=== PATIENT | male | born 1945 | race Caucasian/White ===

== ENCOUNTER → 2018-07-03 | Outpatient (CLI) | payer MEDICARE, BC ==
--- NOTE | 2018-07-04 10:55 | ECHOF ---
Referral Reason:G47.33 Obstructive sleep apnea MEASUREMENTS -------- HEIGHT: 180.3 cm WEIGHT: 138.3 kg BP: RVIDd: 3.1 cm (< 3.3) IVSd: 1.2 cm (0.6 - 1.1) LVIDd: 4.2 cm (3.9 - 5.3) LVPWd: 1.3 cm (0.6 - 1.1) IVSs: 1.5 cm LVIDs: 2.9 cm LVPWs: 1.5 cm LA Diam: 4.1 cm (2.7 - 3.8) Ao Diam: 3.2 cm (2.0 - 3.7) AV Cusp: 1.5 cm (1.5 - 2.6) LA Diam: 4.2 cm (2.7 - 3.8) MV E Jesus: 1.01 m/s MV DecT: 270 ms MV A Jesus: 1.11 m/s MV E/A Ratio: 0.92 RAP: 5.00 mmHg RVSP: 10.74 mmHg FINDINGS -------- Sinus rhythm. This was a technically difficult study with suboptimal views. The left ventricular size is normal. There is mild concentric left ventricular hypertrophy. Overa ll left ventricular systolic function is normal with, an EF between 55 - 60 %. The right ventricle is normal in size and function. The left atrium is mildly dilated. The right atrial size is normal. 3 ml of Lumason was utilized for enhancement of images. There is mild aortic valve sclerosis. There is no evidence of aortic regurgitation. There is no e vidence of aortic stenosis. The mitral valve leaflets are mildly thickened. Mild mitral regurgitation is present. Mild tricuspid regurgitation present. Right ventricular systolic pressure is normal at < 35 mmHg. The right ventricular systolic pressure, as measured by Doppler, is 10.74mmHg. Trace/mild (physiologic) pulmonic regurgitation. The aortic root size is normal. IVC Not well visulized. There is no pericardial effusion. CONCLUSIONS -------- 1. Sinus rhythm. 2. This was a technically difficult study with suboptimal views. 3. The left ventricular size is normal. 4. There is mild concentric left ventricular hypertrophy. 5. Overall left ventricular systolic function is normal with, an EF between 55 - 60 %. 6. The left atrium is mildly dilated. 7. 3 ml of Lumason was utilized for enhancement of images. 8. There is mild aortic valve sclerosis. 9. The mitral valve leaflets are mildly thickened. 10. Mild mitral regurgitation is present. 11. Mild tricuspid regurgitation present. 12. Right ventricular systolic pressure is normal at < 35 mmHg. 13. Trace/mild (physiologic) pulmonic regurgitation. 14. The aortic root size is normal. 15. IVC Not well visulized. 16. There is no pericardial effusion. CHECK EXAMINER: Chepe Smith RDCS
== END | disposition home or self-care (01) ==
LOC: RADECHMAIN 13:08
PROVIDERS: ATTEND Family Medicine
DX: I08.3 Combined rheumatic disorders of mitral, aortic and tricuspid valves (principal)
CPT/HCPCS: C8929; Q9950; 93306

== ENCOUNTER 2021-10-28 07:38 | Day surgery (SDC) | payer BC, MEDICARE ==
[2021-10-26 12:59] VITALS: BMI 41.1
[~2021-10-28 07:38] MED LIST: LACTATED RINGERS 1,000 ML IV SCH
[2021-10-28 08:05] VITALS: TEMP 96.9
[2021-10-28] MEDS ORDERED: LIDOCAINE 1% (10MG/ML) FOR IV START INTRADERMA ONE (08:08)
[2021-10-28 08:21] LABS: Glucose,Whole Blood 108 mg/dL (75-99)
[2021-10-28] MEDS ORDERED: PROPOFOL 10 MG/ML 20 ML VIAL IV ONE (08:39)
--- NOTE | 2021-10-28 08:42 | P.GSHP ---
History of Present Illness H&P Date: 10/28/21 Chief Complaint: Screening colonoscopy This a 76-year-old male presents today for screening colonoscopy. Patient denies a significant GI complaints. Past Medical History Past Medical History: Diabetes Mellitus, GERD/Reflux, Hyperlipidemia, Hypertension, Osteoarthritis (OA), Sleep Apnea/CPAP/BIPAP Additional Past Medical History / Comment(s): HEPATITIS A CHILD (POST TRIP TO [place]). uses CPAP, diet controlled diabetes, hx. colon polyps History of Any Multi-Drug Resistant Organisms: None Reported Past Surgical History: Joint Replacement, Tonsillectomy Additional Past Surgical History / Comment(s): BILATERAL KNEE REPLACED. FATTY TUMOR, cataracts removed, repair of torn/detached right retina Past Anesthesia/Blood Transfusion Reactions: No Reported Reaction Smoking Status: Former smoker Medications and Allergies Home Medications Medication Instructions Recorded Confirmed Type Aspirin [Adult Low Dose Aspirin EC] 81 mg PO QAM 04/08/16 10/28/21 History Celecoxib [CeleBREX] 200 mg PO QAM 04/08/16 10/28/21 History Cholecalciferol [Vitamin D3] 2,000 tab PO DAILY 04/08/16 10/28/21 History Isosorbide Mononitrate ER [Imdur] 90 mg PO QAM 04/08/16 10/28/21 History Multivit-Min/FA/Lycopen/Lutein 1 tab PO DAILY 04/08/16 10/28/21 History [Centrum Silver Tablet] [place]-3 Fatty Acids/Fish Oil [Fish 1 tab PO DAILY 04/08/16 10/28/21 History Oil 1,000 mg Softgel] Simvastatin [Zocor] 40 mg PO HS 04/08/16 10/28/21 History amLODIPine [Norvasc] 10 mg PO QAM 04/08/16 10/28/21 History Losartan Potassium [Cozaar] 100 mg PO DAILY 10/26/21 10/28/21 History hydroCHLOROthiazide [Hydrodiuril] 12.5 mg PO DAILY 10/26/21 10/28/21 History Allergies Allergy/AdvReac Type Severity Reaction Status Date / Time No Known Allergies Allergy Verified 10/28/21 08:19 Surgical - Exam Vital Signs Temp Pulse Resp BP Pulse Ox 96.9 F L 65 18 170/73 95 10/28/21 08:04 10/28/21 08:04 10/28/21 08:04 10/28/21 08:04 10/28/21 08:04 - General well developed, well nourished, no distress - Eyes PERRL - ENT normal pinna - Neck no masses - Respiratory normal expansion - Cardiovascular Rhythm: regular - Abdomen Abdomen: soft, non tender Results - Labs Abnormal Lab Results - Last 24 Hours (Table) 10/28/21 Range/Units 08:20 POC Glucose (mg/dL) 108 H (75-99) mg/dL Assessment and Plan Assessment: We'll perform screening colonoscopy.
--- NOTE | 2021-10-28 08:56 | P.OP ---
Date of Procedure: 10/28/21 Preoperative Diagnosis: Screening colonoscopy Postoperative Diagnosis: Diverticulosis Right colon polyp Procedure(s) Performed: Colonoscopy Anesthesia: MAC Surgeon: Philip Clifton Pathology: other (Right colon polyp) Condition: stable Disposition: PACU Description of Procedure: The patient's placed on the endoscopy table in the lateral position. He received IV sedation. Digital rectal exam was performed. This revealed no abnormalities. The possible colonoscope was then placed patient anus and passed throughout the entire colon. The ileocecal valve was visualized. The cecum appeared normal. In the right colon there was a sessile polyp was removed with the cold forcep. The scope was withdrawn. Remainder the transverse colon appeared normal. In the descending and sigmoid there was moderate diverticular changes. There is no evidence of diverticulitis. Scope brought back the rectum and this appeared normal. Scope withdrawn for patient.
[2021-10-28 09:00] VITALS: RESP 16
[2021-10-28 09:10] VITALS: BP 129/69; PULSE 59
== END 2021-10-28 09:37 | disposition home or self-care (01) ==
LOC: ORWHC2ENDO 07:38
PROVIDERS: ATTEND Surgery
DX: Z12.11 Encounter for screening for malignant neoplasm of colon (principal); D12.2 Benign neoplasm of ascending colon; Z86.010 Personal history of colon polyps; E11.9 Type 2 diabetes mellitus without complications; I10 Essential (primary) hypertension; E78.5 Hyperlipidemia, unspecified; K21.9 Gastro-esophageal reflux disease without esophagitis; G47.33 Obstructive sleep apnea (adult) (pediatric); M19.90 Unspecified osteoarthritis, unspecified site; Z79.82 Long term (current) use of aspirin; Z79.899 Other long term (current) drug therapy; Z87.891 Personal history of nicotine dependence; Z90.89 Acquired absence of other organs; Z96.653 Presence of artificial knee joint, bilateral; Z98.49 Cataract extraction status, unspecified eye
CPT/HCPCS: 88305; 45380; J2704

== ENCOUNTER → 2021-12-22 | Outpatient (CLI) | payer MEDICARE, BC ==
--- NOTE | 2021-12-22 19:09 | CONS ---
CONSULTATION DATE OF SERVICE: 12/22/2021 This 76-year-old gentleman has been evaluated in [facility] for obstructive sleep apnea-hypopnea syndrome. HISTORY OF PRESENT ILLNESS/SLEEP-WAKE EVALUATION: The patient has a history of obstructive sleep apnea-hypopnea syndrome for about 15 years. For all of these years the patient has been using his CPAP equipment. His last CPAP unit he has had for 6 years. The patient's sleep schedule is from 10 p.m. until 3 or 4 a.m. Usually no problems with falling asleep. No TV in bedroom. The patient usually sleeps on the back position. He maybe wakes up from sleep once while he is using his CPAP equipment. Positive history of grinding teeth and sweating. During the day, the patient sometimes feels sleepiness and may take one nap around 2 p.m. [place] Sleepiness Scale is 7, which is in normal range. The patient feels that the pressure in the machine is too high and he has some leak because of that. I checked his PAP unit. Pressure is 15 cm of water. The machine does not have information about apnea-hypopnea index. PAST MEDICAL HISTORY: Positive for hypertension, hyperlipidemia, acid reflux, diabetes mellitus, polyarthritis, COVID-19 about one months ago. PAST SURGICAL HISTORY: Bilateral knee replacement. MEDICATIONS: 1. Simvastatin 40 mg once a day. 2. Amlodipine 10 mg once a day. 3. Isosorbide 90 mg once a day. 4. Losartan/hydrochlorothiazide 100/12.5 mg once a day. 5. Celebrex 200 mg once a day. 6. Aspirin 81 mg once a day. 7. Vitamin D and omega-3 supplement. SOCIAL HISTORY: Positive for smoking in the past; quit in 1990. Alcohol consumption occasional. FAMILY HISTORY: Cancer, hypertension, heart problems. REVIEW OF SYSTEMS: Some discomfort while using CPAP equipment, which started recently related to the pressure and mask fitting. No fevers. No double vision. No recent chest pain. No shortness of breath. No abdominal pain. No bleeding episodes. No blood in the urine. No seizure episodes. PHYSICAL EXAMINATION: GENERAL: Pleasant gentleman without distress. VITAL SIGNS: BP 112/65, HR 80, RR 18, height 5 feet 11 inches, weight 290.8, body mass index 40.4, temperature 96.8, oxygen saturation at room air 96%. HEENT: PERRLA, EOMI, evaluation of oropharynx showed tongue protrudes midline. Low position of soft palate; Mallampati III. NECK: Supple, no JVD. Thyroid is not palpable. Neck is wide; 19 inches in circumference. LUNGS: Clear to percussion and to auscultation. Good air exchange. No wheezing or rhonchi. HEART: S1, S2 regular. No murmurs, gallops, or rubs. ABDOMEN: Obese. EXTREMITIES: No clubbing or cyanosis. SUPERVISOR MAPPING: Awake, alert, and oriented X3. Cranial nerves 2 to 7 intact. There is no fasciculation or atrophy. noted. No focal deficits observed. IMPRESSION: 1. Obstructive sleep apnea-hypopnea syndrome for many years. The patient continues to use his CPAP equipment. CPAP equipment does not have information about apnea- hypopnea index. Recently the patient feels discomfort with usage of his CPAP equipment, has some leak from the mask to the eye area, and feels that the pressure is too high for him. He has low position of soft palate, Mallampati III, wide neck, 19 inches in circumference. 2. Obesity; BMI 40.4. 3. Hypertension. 4. Hyperlipidemia. 5. Polyarthritis. 6. Acid reflux. 7. Diabetes mellitus. 8. Status post bilateral knee replacement. 9. Status post COVID 19 about one month ago. PLAN: 1. I reduced pressure in the machine down to 13 cm of water. 2. Patient should continue to use CPAP equipment every night for the whole night. 3. CPAP titration for re-evaluation of effective CPAP pressure at the present time and to properly fit the patient with his mask. 4. Precautions related to driving. No driving if feeling sleepiness. 5. Losing weight. 6. Follow-up visit after titration. Thank you very much for referring this patient for consultation. Sincerely, Scot Mcgraw MD, PhD, FAASM Diplomat of [place] [employer] Sleep Medicine Board of [place] [employer] [facility] [place] [email or web address] / MAXI: [id number] /
== END ==
LOC: SLEEP 14:20
PROVIDERS: ATTEND Internal Medicine
DX: G47.33 Obstructive sleep apnea (adult) (pediatric) (principal); E66.9 Obesity, unspecified; I10 Essential (primary) hypertension; E78.5 Hyperlipidemia, unspecified; M13.80 Other specified arthritis, unspecified site; K21.9 Gastro-esophageal reflux disease without esophagitis; E11.9 Type 2 diabetes mellitus without complications; Z96.653 Presence of artificial knee joint, bilateral; Z86.16 Personal history of COVID-19; Z68.41 Body mass index [BMI] 40.0-44.9, adult; Z79.899 Other long term (current) drug therapy; Z79.82 Long term (current) use of aspirin; Z87.891 Personal history of nicotine dependence
CPT/HCPCS: 99211

== ENCOUNTER 2022-10-18 14:20 | Emergency (ER) | payer MEDICARE ==
[2022-10-18 14:27] VITALS: TEMP 97.4
--- NOTE | 2022-10-18 14:54 | ED ---
Dizziness HPI - General Chief Complaint: Dizziness Stated Complaint: Blood pressure and oxygen low Time Seen by Provider: 10/18/22 14:32 Source: patient, RN notes reviewed Mode of arrival: ambulatory Limitations: no limitations - History of Present Illness Initial Comments: This is a 77-year-old male who presents to the emergency department for dizziness. Patient states that he was shopping with his , when he suddenly started to feel dizzy and lightheaded. He went to go sit in the car, and still felt unwell. When he got home, he checked his blood pressure and states that it was 85/60. He has had problems with low blood pressure in the past, however he has never been symptomatic. He had minor associated shortness of breath. Denies any chest pain. He was discharged from here on 10/10 following a 3 day admission for a facial cellulitis. States that this has improved significantly other than some residual redness. He is still taking the Augmentin. Denies any fevers, chills, sore throat, cough, dyspnea, chest pain, palpita tions, abdominal pain, nausea, vomiting, diarrhea, back pain, or headaches. MD Complaint: dizziness, lightheadedness - Related Data Home Medications Medication Instructions Recorded Confirmed Aspirin [Adult Low Dose Aspirin EC] 81 mg PO DAILY 04/08/16 10/18/22 Celecoxib [CeleBREX] 200 mg PO DAILY 04/08/16 10/18/22 Isosorbide Mononitrate ER [Imdur] 90 mg PO DAILY 04/08/16 10/18/22 Multivit-Min/FA/Lycopen/Lutein 1 tab PO DAILY 04/08/16 10/18/22 [Centrum Silver Tablet] [place]-3 Fatty Acids/Fish Oil [Fish 1 cap PO DAILY 04/08/16 10/18/22 Oil 1,000 mg Softgel] Simvastatin [Zocor] 40 mg PO HS 04/08/16 10/18/22 amLODIPine [Norvasc] 10 mg PO DAILY 04/08/16 10/18/22 Losartan Potassium [Cozaar] 100 mg PO DAILY 10/26/21 10/18/22 hydroCHLOROthiazide [Hydrodiuril] 12.5 mg PO DAILY 10/26/21 10/18/22 Cholecalciferol [Vitamin D3 (25 50 mcg PO DAILY 10/07/22 10/18/22 Mcg = 1000 Iu)] Diclofenac Sodium Gel [Voltaren 1 applic TOPICAL QID PRN 10/07/22 10/18/22 Gel] Vit C/E/Zn/Coppr/Lutein/Zeaxan 1 cap PO BID 10/07/22 10/18/22 [Preservision Areds 2 Softgel] diphenhydrAMINE HCL [Benadryl] 50 mg PO Q4H PRN 10/07/22 10/18/22 Omeprazole 40 mg PO DAILY 10/18/22 10/18/22 Previous Rx's Medication Instructions Recorded Amoxic-Pot Clav 875-125Mg 1 tab PO Q12HR 10 Days #20 tab 10/10/22 [Augmentin 875-125] Azithromycin [Zithromax] 250 mg PO DIRECTED #6 tab 10/18/22 Allergies Allergy/AdvReac Type Severity Reaction Status Date / Time [email or web address] 10/18/22 15:27 [From Neosporin site ([id number])] [email or web address] 10/18/22 15:27 [From Neosporin site ([id number])] [email or web address] [email or web address] 10/18/22 15:27 [From Neosporin site ([id number])] Review of Systems ROS Statement: Those systems with pertinent positive or pertinent negative responses have been documented in the HPI. ROS Other: All systems not noted in ROS Statement are negative. Past Medical History Past Medical History: Diabetes Mellitus, GERD/Reflux, Hyperlipidemia, Hypertension, Osteoarthritis (OA), Sleep Apnea/CPAP/BIPAP Additional Past Medical History / Comment(s): HEPATITIS A CHILD (POST TRIP TO [place]). uses CPAP, diet controlled diabetes, hx. colon polyps History of Any Multi-Drug Resistant Organisms: None Reported Past Surgical History: Joint Replacement, Tonsillectomy Additional Past Surgical History / Comment(s): BILATERAL KNEE REPLACED. FATTY TUMOR, cataracts removed, repair of torn/detached right retina Past Anesthesia/Blood Transfusion Reactions: No Reported Reaction Past Psychological History: No Psychological Hx Reported Smoking Status: Former smoker Past Alcohol Use History: None Reported Past Drug Use History: None Reported General Exam Limitations: no limitations General appearance: alert, in no apparent distress Head exam: Present: atraumatic, normocephalic, other (Minor erythema to the bilateral cheeks and forehead. No swelling or tenderness.) Respiratory exam: Present: normal lung sounds bilaterally. Absent: respiratory distress, wheezes, rales, rhonchi, stridor Cardiovascular Exam: Present: regular rate, normal rhythm, normal heart sounds. Absent: systolic murmur, diastolic murmur, rubs, gallop, clicks Neurological exam: Present: alert, oriented X3, CN II-XII intact Psychiatric exam: Present: normal affect, normal mood Skin exam: Present: warm, dry, intact Course Vital Signs 10/18/22 10/18/22 10/18/22 14:22 15:51 17:21 Temperature 97.4 F L Pulse Rate 74 68 62 Respiratory 16 18 18 Rate Blood Pressure 97/60 116/56 122/58 O2 Sat by Pulse 97 95 97 Oximetry 10/18/22 17:30 Temperature 97.4 F L Pulse Rate 61 Respiratory 18 Rate Blood Pressure 146/64 O2 Sat by Pulse 98 Oximetry Medical Decision Making - Medical Decision Making This is a 77-year-old male who presents to the emergency department for hypotension and dizziness. Was pt. sent in by a medical professional or institution? @ -No Did you speak to anyone other than the patient for history? @ -No Did you review nursing and triage notes? @ -Yes, and I agree, it is accurate with regards to the patient's symptoms. Were old charts reviewed? @ -No Differential Diagnosis? @ -Differential Dizziness: Benign paroxysmal positional Vertigo, Menieres disease, otitis media, acoustic neuroma, vertebrobasilar insufficiency, cerebellar stroke, encephalitis, hypovolemic, arrhythmia, coronary artery syndrome, anemia, this is not meant to be an all-inclusive list EKG interpreted by me (3pts min.)? @ -Sinus rhythm. Ventricular rate 72 beats per minute, AK interval 181 ms, QRS duration 88 ms, QTC 456 ms. X-rays interpreted by me (1pt min.)? @ -Chest x-ray obtained. My interpretation reveals right middle lobe opacities. What testing was considered but not performed? (CT, X-rays, U/S, labs)? Why? @ -None What meds were considered but not given? Why? @ -None Did you discuss the management of the patient with other professionals? @ -No Did you reconcile home meds? @ -No Was smoking cessation discussed for >3mins.? @ -No Was critical care preformed (if so, how long)? @ -No Were there social determinants of health that impacted care today? How? (Homelessness, low income, unemployed, alcoholism, drug addiction, transportation, low edu. Level, literacy, decrease access to med. care, [facility], rehab)? @ -No Was there de-escalation of care discussed even if they declined? (Discuss DNR or withdrawal of care, Hospice)? @ -No What co-morbidities impacted this encounter? (DM, HTN, Smoking, COPD, CAD, Cancer, CVA, Hep., AIDS, mental health diagnosis, sleep apnea, morbid obesity)? @ -DM, HTN, HLD, morbid obesity Was patient admitted / discharged? @ -Discharged. Lab work reveals leukocytosis increased from the value prior to discharge on 10/10. He also has a mild EH. BP 97/60 on arrival. He was given a liter bolus of IV fluids for the blood pressure and EH. Blood pressure did improve dramatically to 122/58 followed by 146/64. Hypotension possibly second lynn to dehydration. Chest x-ray concerning for developing pneumonia versus atelectasis. Findings reviewed with the patient, and we discussed that we can consider admission for the pneumonia and symptomatic hypotension versus discharge home with close follow-up. Patient states that overall he feels markedly improved and requests discharge home. Prescription for Z-Jaime provided with the first dose administered in the emergency department. He is advised to take this while finishing his course of Augmentin. He is also advised to remain well-hydrated and check his blood pressure frequently over the next couple of days and to follow-up with his primary care provider in 1-2 days. Undiagnosed new problem with uncertain prognosis? @ -None Drug Therapy requiring intensive monitoring for toxicity (Heparin, Nitro, Insulin, Cardizem)? @ -None Were any procedures done? @ -None Diagnosis/symptom? @ -Dehydration, pneumonia Acute, or Chronic, or Acute on Chronic? @ -Acute Uncomplicated (without systemic symptoms) or Complicated (systemic symptoms)? @ -Uncomplicated Side effects of treatment? @ -None Exacerbation, Progression, or Severe Exacerbation] @ -Not applicable Poses a threat to life or bodily function? @ -No Return precautions reviewed in depth, the patient is instructed to return to the emergency department with any new, worsening, or concerning symptoms. Patient verbalized understanding. This case was discussed in detail with the attending ED physician, Dr. Hardin. Presentation, findings, and treatment plan discussed in detail as well. - Lab Data Result diagrams: 10/18/22 14:58 10/18/22 14:58 Lab Results 10/18/22 10/18/22 10/18/22 Range/Units 14:50 14:58 14:58 WBC 13.6 H (3.8-10.6) k/uL RBC 5.04 (4.30-5.90) m/uL Hgb 14.9 (13.0-17.5) gm/dL Hct 45.2 (39.0-53.0) % MCV 89.7 (80.0-100.0) fL MCH 29.6 (25.0-35.0) pg MCHC 33.0 (31.0-37.0) g/dL RDW 13.7 (11.5-15.5) % Plt Count 272 (150-450) k/uL MPV 8.0 Neutrophils % 78 % Lymphocytes % 13 % Monocytes % 5 % Eosinophils % 2 % Basophils % 1 % Neutrophils # 10.7 H (1.3-7.7) k/uL Lymphocytes # 1.7 (1.0-4.8) k/uL Monocytes # 0.7 (0-1.0) k/uL Eosinophils # 0.3 (0-0.7) k/uL Basophils # 0.1 (0-0.2) k/uL PT 10.8 (9.0-12.0) sec INR 1.0 (<1.2) Sodium (137-145) mmol/L Potassium (3.5-5.1) mmol/L Chloride (98-107) mmol/L Carbon Dioxide (22-30) mmol/L Anion Gap mmol/L BUN (9-20) mg/dL Creatinine (0.66-1.25) mg/dL Est GFR (CKD-EPI)AfAm (>60 ml/min/1.73 sqM) Est GFR (CKD-EPI)NonAf (>60 ml/min/1.73 sqM) Glucose (74-99) mg/dL Plasma Lactic Acid Balaji (0.7-2.0) mmol/L Calcium (8.4-10.2) mg/dL Total Bilirubin (0.2-1.3) mg/dL AST (17-59) U/L ALT (4-49) U/L Alkaline Phosphatase (38-126) U/L Troponin I (0.000-0.034) ng/mL C-Reactive Protein (<1.0) mg/dL Total Protein (6.3-8.2) g/dL Albumin (3.5-5.0) g/dL Urine Color Yellow Urine Appearance Cloudy (Clear) Urine pH 5.5 (5.0-8.0) Ur Specific [place] 1.022 (1.001-1.035) Urine Protein 1+ H (Negative) Urine Glucose (UA) Negative (Negative) Urine Ketones Negative (Negative) Urine Blood Negative (Negative) Urine Nitrite Negative (Negative) Urine Bilirubin Negative (Negative) Urine Urobilinogen 2.0 (<2.0) mg/dL Ur Leukocyte Esterase Negative (Negative) Urine RBC 2 (0-5) /hpf Urine WBC 4 (0-5) /hpf Ur Squamous Epith Cells 2 (0-4) /hpf Amorphous Sediment Occasional H (None) /hpf Hyaline Casts 326 H (0-2) /lpf Urine Mucus Many H (None) /hpf Urine Opiates Screen Not Detected (NotDetected) Ur Oxycodone Screen Not Detected (NotDetected) Urine Methadone Screen Not Detected (NotDetected) Ur Propoxyphene Screen Not Detected (NotDetected) Ur Barbiturates Screen Not Detected (NotDetected) U Tricyclic Antidepress Not Detected (NotDetected) Ur Phencyclidine Scrn Not Detected (NotDetected) Ur Amphetamines Screen Not Detected (NotDetected) U Methamphetamines Scrn Not Detected (NotDetected) U Benzodiazepines Scrn Not Detected (NotDetected) Urine Cocaine Screen Not Detected (NotDetected) U Marijuana (THC) Screen Detected H (NotDetected) 10/18/22 10/18/22 10/18/22 Range/Units 14:58 14:58 14:58 WBC (3.8-10.6) k/uL RBC (4.30-5.90) m/uL Hgb (13.0-17.5) gm/dL Hct (39.0-53.0) % MCV (80.0-100.0) fL MCH (25.0-35.0) pg MCHC (31.0-37.0) g/dL RDW (11.5-15.5) % Plt Count (150-450) k/uL MPV Neutrophils % % Lymphocytes % % Monocytes % % Eosinophils % % Basophils % % Neutrophils # (1.3-7.7) k/uL Lymphocytes # (1.0-4.8) k/uL Monocytes # (0-1.0) k/uL Eosinophils # (0-0.7) k/uL Basophils # (0-0.2) k/uL PT (9.0-12.0) sec INR (<1.2) Sodium 140 (137-145) mmol/L Potassium 4.5 (3.5-5.1) mmol/L Chloride 107 (98-107) mmol/L Carbon Dioxide 23 (22-30) mmol/L Anion Gap 10 mmol/L BUN 31 H (9-20) mg/dL Creatinine 1.60 H (0.66-1.25) mg/dL Est GFR (CKD-EPI)AfAm 48 (>60 ml/min/1.73 sqM) Est GFR (CKD-EPI)NonAf 41 (>60 ml/min/1.73 sqM) Glucose 119 H (74-99) mg/dL Plasma Lactic Acid Balaji 1.7 (0.7-2.0) mmol/L Calcium 9.4 (8.4-10.2) mg/dL Total Bilirubin 0.6 (0.2-1.3) mg/dL AST 25 (17-59) U/L ALT 41 (4-49) U/L Alkaline Phosphatase 87 (38-126) U/L Troponin I 0.014 (0.000-0.034) ng/mL C-Reactive Protein 1.8 H (<1.0) mg/dL Total Protein 7.2 (6.3-8.2) g/dL Albumin 4.3 (3.5-5.0) g/dL Urine Color Urine Appearance (Clear) Urine pH (5.0-8.0) Ur Specific [place] (1.001-1.035) Urine Protein (Negative) Urine Glucose (UA) (Negative) Urine Ketones (Negative) Urine Blood (Negative) Urine Nitrite (Negative) Urine Bilirubin (Negative) Urine Urobilinogen (<2.0) mg/dL Ur Leukocyte Esterase (Negative) Urine RBC (0-5) /hpf Urine WBC (0-5) /hpf Ur Squamous Epith Cells (0-4) /hpf Amorphous Sediment (None) /hpf Hyaline Casts (0-2) /lpf Urine Mucus (None) /hpf Urine Opiates Screen (NotDetected) Ur Oxycodone Screen (NotDetected) Urine Methadone Screen (NotDetected) Ur Propoxyphene Screen (NotDetected) Ur Barbiturates Screen (NotDetected) U Tricyclic Antidepress (NotDetected) Ur Phencyclidine Scrn (NotDetected) Ur Amphetamines Screen (NotDetected) U Methamphetamines Scrn (NotDetected) U Benzodiazepines Scrn (NotDetected) Urine Cocaine Screen (NotDetected) U Marijuana (THC) Screen (NotDetected) - Radiology Data Radiology results: report reviewed, image reviewed Disposition Clinical Impression: Dehydration, Pneumonia Disposition: HOME SELF-CARE Instructions (If sedation given, give patient instructions): Dehydration (ED), Pneumonia (ED) Additional Instructions: Return to the emergency department with any new, worsening, or concerning symptoms. Take the new antibiotic as prescribed for 5 days. Continue taking the Augmentin with it. Make sure that you remain very well-hydrated. Follow up with your primary care provider in 1-2 days. Prescriptions: Azithromycin [Zithromax] 250 mg PO DIRECTED #6 tab Is patient prescribed a controlled substance at d/c from ED?: No Referrals: Dawna Vu MD [Primary Care Provider] - 1-2 days
[2022-10-18 15:04] LABS: Basophils # (A) 0.1 k/uL (0-0.2); Basophils % (A) 1 %; Eosinophils # (A) 0.3 k/uL (0-0.7); Eosinophils % (A) 2 %; HCT 45.2 % (39.0-53.0); HGB 14.9 gm/dL (13.0-17.5); Lymphocytes # (A) 1.7 k/uL (1.0-4.8); Lymphocytes % (A) 13 %; MCH 29.6 pg (25.0-35.0); MCV 89.7 fL (80.0-100.0); Monocytes # (A) 0.7 k/uL (0-1.0); Monocytes % (A) 5 %; Neutrophils # (A) 10.7 k/uL (1.3-7.7); Neutrophils % (A) 78 %; Platelet Count 272 k/uL (150-450); RBC 5.04 m/uL (4.30-5.90); RDW 13.7 % (11.5-15.5); WBC 13.6 k/uL (3.8-10.6)
[2022-10-18 15:25] LABS: Albumin 4.3 g/dL (3.5-5.0); C Reactive Protein 1.8 mg/dL (<1.0); Calcium 9.4 mg/dL (8.4-10.2); Potassium 4.5 mmol/L (3.5-5.1); Total Bilirubin 0.6 mg/dL (0.2-1.3); Total Protein 7.2 g/dL (6.3-8.2)
[2022-10-18 15:29] LABS: Prothrombin Time 10.8 sec (9.0-12.0)
[2022-10-18 15:37] LABS: Amorphous Sediment,Urine Occasional /hpf; Appearance,Urine Cloudy (Clear); Bilirubin,Urine Negative (Negative); Blood,Urine Negative (Negative); Color,Urine Yellow; Glucose,Urine (UA) Negative (Negative); Hyaline Casts,Urine 326 /lpf (0-2); Ketones,Urine Negative (Negative); Leukocyte Esterase,Urine Negative (Negative); Mucus,Urine Many /hpf; Nitrite,Urine Negative (Negative); PH, Urine 5.5 (5.0-8.0); Protein,Urine 1+ (Negative); RBC,Urine 2 /hpf (0-5); Specific Gravity,Urine 1.022 (1.001-1.035); Squamous Epithelial Cell,Urine 2 /hpf (0-4); WBC,Urine 4 /hpf (0-5)
[2022-10-18 15:46] LABS: Amphetamine Screen,Urine Not Detected (NotDetected); Barbiturate Screen,Urine Not Detected (NotDetected); Benzodiazepines Screen,Urine Not Detected (NotDetected); Cocaine Screen,Urine Not Detected (NotDetected); Methadone Screen, Urine Not Detected (NotDetected); Opiate Screen,Urine Not Detected (NotDetected); Oxycodone Screen, Urine Not Detected (NotDetected); Phencyclidine Screen,Urine Not Detected (NotDetected); Tricyclic Antidepressant,Urine Not Detected (NotDetected); Urn Cannabinoid Scrn Detected (NotDetected)
--- NOTE | 2022-10-18 15:49 | XR ---
EXAMINATION TYPE: XR chest 2V DATE OF EXAM: 10/18/2022 3:30 PM COMPARISON: Chest radiographs from 03/02/2010 TECHNIQUE: XR chest 2V Frontal and lateral views of the chest. CLINICAL INDICATION:Male, 77 years old with history of ODALIS; FINDINGS: Lungs/Pleura: No pleural effusion or pneumothorax. Patchy right middle lobe airspace opacities. Pulmonary vascularity: Unremarkable. Heart/mediastinum: Cardiomediastinal silhouette is unremarkable. Atherosclerotic calcifications are seen in the aorta. Musculoskeletal: Multiple level degenerative disc disease changes seen throughout the spine. No acute osseous adenopathy. IMPRESSION: Patchy right middle lobe airspace opacities which may represent atelectasis versus infiltrate.
[2022-10-18 15:52] VITALS: RESP 18
[2022-10-18] MEDS ORDERED: SODIUM CHLORIDE 0.9% 1,000 ML IV STA (15:54)
[2022-10-18] MEDS ORDERED: AZITHROMYCIN 500 MG TAB PO STA (16:29)
[2022-10-18 17:32] VITALS: BP 146/64; PULSE 61
== END 2022-10-18 17:30 | disposition home or self-care (01) ==
LOC: EC 14:20
DX: E86.0 Dehydration (principal); J18.9 Pneumonia, unspecified organism; I10 Essential (primary) hypertension; E11.36 Type 2 diabetes mellitus with diabetic cataract; K21.9 Gastro-esophageal reflux disease without esophagitis; E78.5 Hyperlipidemia, unspecified; Z88.1 Allergy status to other antibiotic agents; Z90.89 Acquired absence of other organs; Z96.653 Presence of artificial knee joint, bilateral; Z79.82 Long term (current) use of aspirin; Z87.891 Personal history of nicotine dependence
CPT/HCPCS: 36415; 71046; 80053; 80306; 81001; 83605; 84484; 85025; 85610; 86140; 93005; 96360; 99284

== ENCOUNTER → 2022-12-07 | Outpatient (CLI) | payer MEDICARE ==
--- NOTE | 2022-12-07 12:27 | CT ---
EXAMINATION TYPE: CT chest w con DATE OF EXAM: 12/07/2022 COMPARISON: 03/02/2010 HISTORY: SOB CT DLP: 940 mGycm, Automated exposure control for dose reduction was used. CONTRAST: Performed injected with 100 mL of Isovue 300. TECHNIQUE: Axial images were obtained at 5 mm thick sections. Reconstructed images are reviewed on [employer] computer in the coronal plane. FINDINGS: Portion of the thyroid visualized is normal. Some streak opacity in the posterior right lung base may be some atelectasis. Couple of punctate calc ifications appears to lie above the right diaphragm. Tiny density is along the major fissure on the l eft, series 4 image 44. Small anterior right upper lung field density is present, series 4 image 45. No enlarged mediastinal or hilar adenopathy is evident. There is a 0.9 cm pretracheal lymph node pr esent. A 0.8 cm right peribronchial lymph node is present. The ascending aorta diameter at the level of the main pulmonary artery is 2.9 cm. The main pulmonary artery diameter at the bifurcation is 2.4 cm. Some coronary artery calcification is noted. Limited CT sections are obtained through the upper abdomen. Abdomen is essentially unremarkable. IMPRESSIONS: 1. No suspicious acute abnormality. CT chest follow-up can be performed in one year.
== END | disposition home or self-care (01) ==
LOC: RADCTMAIN 10:12
PROVIDERS: ATTEND Family Medicine
DX: R06.00 Dyspnea, unspecified (principal); Z87.01 Personal history of pneumonia (recurrent)
CPT/HCPCS: 82565; 84520; 71260; 36415; Q9967

== ENCOUNTER 2023-08-31 10:09 | Day surgery (SDC) | payer BC, MEDICARE ==
[~2023-08-31 10:09] MED LIST changes: +ALPRAZolam 0.25 MG TAB PO PRN; +ALPRAZolam 0.5 MG TAB PO PRN; +ASPIRIN 325 MG TAB PO ONE; +ATORVASTATIN 80 MG TAB PO ONE; +HEPARIN SODIUM,PORCINE (1 ML) 2,500 UNIT in SODIUM CHLORIDE 0.9% 250 ML IRRIGATION PRN; +HEPARIN SODIUM,PORCINE 10,000 UNIT in SODIUM CHLORIDE 0.9% 1,000 ML IRRIGATION PRN; -LACTATED RINGERS 1,000 ML IV SCH; +NITROGLYCERIN SL TABS 0.4 MG TAB SUBLINGUAL PRN; +SODIUM CHLORIDE 0.9% 1,000 ML in EMPTY BAG 1 BAG IV SCH
[2023-08-31] MEDS ORDERED: SODIUM CHLORIDE 0.9% 1,000 ML IV ONE ×2 (10:47→16:35)
[2023-08-31 11:02] LABS: Glucose,Whole Blood 146 mg/dL (70-110)
[2023-08-31 11:17] VITALS: RESP 16; TEMP 98.6
[2023-08-31] MEDS ORDERED: HEPARIN SODIUM 1,000 UN/ML (10ML VL) ONE (12:14)
[2023-08-31] MEDS ORDERED: VERAPAMIL 2.5 MG/ML 2 ML AMP ONE (12:14)
[2023-08-31] MEDS ORDERED: LIDOCAINE 1% INJ 10MG/ML (20 ML MDV) ONE (12:14)
[2023-08-31] MEDS ORDERED: MIDAZOLAM 2 MG/2 ML VIAL IVP ONE (12:31)
[2023-08-31] MEDS ORDERED: LIDOCAINE 1% INJ 10MG/ML (20 ML MDV) SQ ONE (12:32)
[2023-08-31] MEDS ORDERED: VERAPAMIL SYRINGE (5 MG/10 ML) INTRAARTER ONE (12:36)
[2023-08-31] MEDS ORDERED: HEPARIN SODIUM 1,000 UN/ML (10ML VL) IVP ONE (12:37)
[2023-08-31] MEDS ORDERED: RX INFO: IV CONTRAST WAS GIVEN 1 EACH MISC MISCELLANE PRN (12:46)
[2023-08-31] MEDS ORDERED: SODIUM CHLORIDE 0.9% 1,000 ML IV SCH (13:00)
--- NOTE | 2023-08-31 13:10 | CC ---
CARDIAC CATHETERIZATION REPORT PERFORMING PHYSICIAN: Merlin Rangel MD. PROCEDURE PERFORMED: 1. Selective right and left coronary angiogram. 2. Ultrasound-guided access of the right radial artery. INDICATIONS: This is a symptomatic 78-year-old gentleman who underwent myocardial perfusion imaging stress test and that came in to be abnormal showing inferolateral ischemia. APPROACH: Right radial artery. COMPLICATIONS: None. LEVEL OF SEDATION: Moderate, with sedation length of 13 minutes. PROCEDURE DESCRIPTION: After obtaining informed consent, the patient was brought to the cardiac test lab technician. The right radial artery was cannulated using micropuncture technique under ultrasound guidance, the micropuncture wire passed easily then I placed a 6-Vincentian sheath. I gave the patient 2 mg of verapamil intra-arterially and 5000 units of heparin intravenous. Selective right and left coronary angiogram performed using JR4 and JL3.5 catheters. The procedure was completed with no complication. SELECTIVE CORONARY ANGIOGRAM: The RCA is a large-caliber vessel and a dominant vessel. The mid RCA has mild-to- moderate disease, appeared to be in the range of 30% to 40%. The left main is angiographically normal it bifurcates into LCX and LAD. The LCX is a large-caliber vessel it is a nondominant vessel. The LCX in the mid portion by the bifurcation of the obtuse marginal branch has a lesion appeared to be in the range of 60%. The LAD is a large-caliber vessel. Tortuous LAD with mild to moderate disease with no high-grade stenosis identified. CONCLUSION: 1. 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 The artery by the bifurcation of large obtuse marginal branch. POSTPROCEDURE MANAGEMENT: Consider medical treatment at this point. If the patient remains symptomatic, consider FFR of the left circumflex and possibly the RCA. MMODL / IJN: [id number] /
[2023-08-31 15:16] VITALS: BP 141/59; PULSE 66
== END 2023-08-31 16:37 | disposition home or self-care (01) ==
LOC: CATHCVL 10:09
PROVIDERS: ATTEND Internal Medicine Interventional Cardiology
DX: I25.10 Atherosclerotic heart disease of native coronary artery without angina pectoris (principal); I10 Essential (primary) hypertension; E78.5 Hyperlipidemia, unspecified; E11.9 Type 2 diabetes mellitus without complications; F17.210 Nicotine dependence, cigarettes, uncomplicated; I73.9 Peripheral vascular disease, unspecified; G47.33 Obstructive sleep apnea (adult) (pediatric); Z79.899 Other long term (current) drug therapy; Z79.82 Long term (current) use of aspirin
CPT/HCPCS: 93458; 76937; C1769; C1894; J2250; J2001; J1644

== ENCOUNTER 2024-02-27 01:06 | Emergency (ER) | payer MEDICARE ==
[2024-02-27] MEDS: DILTIAZEM ORAL 60 MG TAB PO STA (01:30)
[2024-02-27] MEDS: ASPIRIN 81 MG PO STA (01:30)
[2024-02-27] MEDS ORDERED: DILTIAZEM 125 MG in SODIUM CHLORIDE 0.9% 100 ML IV SCH (01:30)
[2024-02-27 01:33] LABS: Basophils # (A) 0.1 k/uL (0-0.2); Basophils % (A) 1 %; Eosinophils # (A) 0.5 k/uL (0-0.7); Eosinophils % (A) 6 %; HCT 42.8 % (39.0-53.0); Lymphocytes # (A) 1.5 k/uL (1.0-4.8); Lymphocytes % (A) 16 %; MCHC 32.7 g/dL (31.0-37.0); MCV 88.5 fL (80.0-100.0); Mean Platelet Volume 7.7; Monocytes # (A) 0.5 k/uL (0-1.0); Monocytes % (A) 5 %; Neutrophils # (A) 6.5 k/uL (1.3-7.7); Neutrophils % (A) 71 %; Platelet Count 262 k/uL (150-450); RBC 4.83 m/uL (4.30-5.90); RDW 14.2 % (11.5-15.5); WBC 9.1 k/uL (3.8-10.6)
[2024-02-27 01:46] LABS: Partial Thromboplastin Time 29.4 sec (22.0-30.0)
[2024-02-27 01:52] LABS: ALT 17 U/L (4-49); AST 27 U/L (17-59); African American GFR (CKD) 73 (>60 ml/min/1.73 sqM); Albumin 3.9 g/dL (3.5-5.0); Alkaline Phosphatase 101 U/L (38-126); Anion Gap 9 mmol/L; Blood Urea Nitrogen 28 mg/dL (9-20); Calcium 8.6 mg/dL (8.4-10.2); Carbon Dioxide 21 mmol/L (22-30); Chloride 106 mmol/L (98-107); Glucose 164 mg/dL (74-99); Magnesium 1.5 mg/dL (1.6-2.3); Non-African American GFR(CKD) 63 (>60 ml/min/1.73 sqM); Potassium 3.8 mmol/L (3.5-5.1); Sodium 136 mmol/L (137-145); Total Bilirubin 0.7 mg/dL (0.2-1.3); Total Protein 6.4 g/dL (6.3-8.2)
--- NOTE | 2024-02-27 02:39 | XR ---
EXAM: XR Chest, 2 Views CLINICAL HISTORY: ITS.REASON XR Reason: dysrhythmia TECHNIQUE: Frontal and lateral views of the chest. COMPARISON: No relevant prior studies available. FINDINGS: Lungs: Unremarkable. No consolidation. Pleural space: Trace LEFT pleural effusion. No pneumothorax. Heart: Cardiomegaly. Mediastinum: Unremarkable. Normal mediastinal contour. Bones/joints: Unremarkable. No acute fracture. IMPRESSION: Trace LEFT pleural effusion.
[2024-02-27] MEDS: MAGNESIUM SULFATE-D5W PMX 1 GM in DEXTROSE/WATER 1 100ML.BAG IVPB ONE (03:11)
[2024-02-27 03:14] VITALS: TEMP 98.8
--- NOTE | 2024-02-27 03:48 | ED ---
Chest Pain HPI - General Chief Complaint: Chest Pain Stated Complaint: Chest pain Time Seen by Provider: 02/27/24 01:19 Source: patient Mode of arrival: EMS Limitations: no limitations - History of Present Illness Initial Comments: This patient is a 78-year-old man brought by ambulance from his long-term care facility to have evaluation for chest pain. Patient had reported pain to the nurses there tonight. On EMS arrival they found the patient and what appeared to be atrial fibrillation with a rate between 140s and 170s. MD Complaint: chest pain -: hour(s) Onset: during rest Pain Location: substernal - Related Data Home Medications Medication Instructions Recorded Confirmed Aspirin [Adult Low Dose Aspirin EC] 81 mg PO DAILY 04/08/16 08/31/23 Celecoxib [CeleBREX] 200 mg PO DAILY 04/08/16 08/25/23 Isosorbide Mononitrate ER [Imdur] 90 mg PO DAILY 04/08/16 08/25/23 Multivit-Min/FA/Lycopen/Lutein 1 tab PO DAILY 04/08/16 08/31/23 [Centrum Silver Tablet] [place]-3 Fatty Acids/Fish Oil [Fish 1 cap PO DAILY 04/08/16 08/31/23 Oil 1,000 mg Softgel] Simvastatin [Zocor] 40 mg PO HS 04/08/16 08/25/23 Losartan Potassium [Cozaar] 100 mg PO DAILY 10/26/21 08/25/23 hydroCHLOROthiazide [Hydrodiuril] 6.25 mg PO DAILY 10/26/21 08/25/23 Cholecalciferol [Vitamin D3 (25 125 mcg PO DAILY 10/07/22 08/31/23 Mcg = 1000 Iu)] Diclofenac Sodium Gel [Voltaren 1% 1 applic TOPICAL QID PRN 10/07/22 08/31/23 Gel] Vit C/E/Zn/Coppr/Lutein/Zeaxan 1 cap PO BID 10/07/22 08/31/23 [Preservision Areds 2 Softgel] Omeprazole 40 mg PO DAILY 10/18/22 08/25/23 Previous Rx's Medication Instructions Recorded Magnesium Oxide [Mag-Ox] 400 mg PO DAILY #15 tablet 02/27/24 Magnesium Oxide [Mag-Ox] 400 mg PO DAILY #15 tablet 02/27/24 Allergies Allergy/AdvReac Type Severity Reaction Status Date / Time bacitracin Allergy [email or web address]@Contact Verified 08/31/23 10:54 [From Neosporin site ([id number])] neomycin [email or web address] [email or web address]@Contact Verified 08/31/23 10:54 [From Neosporin site ([id number])] polymyxin B Allergy Swelling@Contact Verified 08/31/23 10:54 [From Neosporin site ([id number])] Review of Systems ROS Statement: Those systems with pertinent positive or pertinent negative responses have been documented in the HPI. ROS Other: All systems not noted in ROS Statement are negative. Constitutional: Denies: fever, chills Respiratory: Denies: cough, dyspnea Cardiovascular: Reports: chest pain, palpitations Gastrointestinal: Denies: abdominal pain, nausea, vomiting Genitourinary: Denies: hematuria Musculoskeletal: Denies: back pain Skin: Denies: rash Neurological: Denies: headache, weakness Past Medical History Past Medical History: Diabetes Mellitus, GERD/Reflux, Hyperlipidemia, Hypertension, Osteoarthritis (OA), Sleep Apnea/CPAP/BIPAP Additional Past Medical History / Comment(s): HEPATITIS A CHILD (POST TRIP TO [place]). uses CPAP, diet controlled diabetes, hx. colon polyps History of Any Multi-Drug Resistant Organisms: None Reported Past Surgical History: Joint Replacement, Tonsillectomy Additional Past Surgical History / Comment(s): BILATERAL KNEE REPLACED. FATTY TUMOR, cataracts removed, repair of torn/detached right retina Past Anesthesia/Blood Transfusion Reactions: No Reported Reaction Past Psychological History: No Psychological Hx Reported Smoking Status: Never smoker Past Alcohol Use History: Occasional Past Drug Use History: None Reported General Exam Limitations: no limitations General appearance: alert, in no apparent distress Head exam: Present: atraumatic, normocephalic Eye exam: Present: normal appearance. Absent: scleral icterus, conjunctival injection Neck exam: Present: normal inspection Respiratory exam: Present: normal lung sounds bilaterally. Absent: respiratory distress, wheezes, rales, rhonchi, stridor, accessory muscle use Cardiovascular Exam: Present: regular rate, normal rhythm, normal heart sounds. Absent: systolic murmur, diastolic murmur, rubs, gallop GI/Abdominal exam: Present: soft. Absent: distended, tenderness, guarding, rebound, rigid, mass Extremities exam: Present: normal inspection, normal capillary refill. Absent: pedal edema, calf tenderness Back exam: Present: normal inspection. Absent: CVA tenderness (R), CVA tenderness (L) Neurological exam: Present: alert Skin exam: Present: warm, dry, intact, normal color. Absent: rash Course Vital Signs 02/27/24 02/27/24 02/27/24 01:11 01:19 01:30 Temperature 98.6 F Pulse Rate 101 H 112 H 71 Respiratory 20 20 18 Rate Blood Pressure 131/107 139/93 142/72 O2 Sat by Pulse 93 L 95 95 Oximetry 02/27/24 02/27/24 02/27/24 02:00 03:12 03:53 Temperature 98.8 F Pulse Rate 71 64 61 Respiratory 18 17 18 Rate Blood Pressure 146/68 118/60 131/56 O2 Sat by Pulse 96 95 95 Oximetry Chest Pain MDM - MDM This patient is 78-year-old man [facility] chest pain and rapid heart rate. On arrival ECG was performed which showed atrial fibrillation with a rapid ventricular rate at 127. By the time that I had gone to see the patient, he had spontaneously reverted to sinus rhythm with a normal rate. The patient's symptoms all resolved. Workup is unremarkable here and as the patient is feeling well stable for transfer back to long-term care facility Was pt. sent in by a medical professional or institution (JAMEEL Ramon, SENIOR LINUX UNIX ENGINEER, urgent care, hospital, or penitentiary...) When possible be specific @ -[Sent from long-term care facility to have evaluation Did you speak to anyone other than the patient for history (EMS, parent, family, police, friend...)? What history was obtained from this source @ -[No] Did you review nursing and triage notes (agree or disagree)? Why? @ -[I reviewed and agree with nursing and triage notes] Were old charts reviewed (outside hosp., previous admission, EMS record, old EKG, old radiological studies, urgent care reports/EKG's, penitentiary records)? Report findings @ -[yes old charts were reviewed] Differential Diagnosis (chest pain, altered mental status, abdominal pain women, abdominal pain men, vaginal bleeding, weakness, fever, dyspnea, syncope, headache, dizziness, GI bleed, back pain, seizure, CVA, palpatations, mental health, musculoskeletal)? @ -[Differential Chest Pain: Stable Angina, Unstable Angina, STEMI, NSTEMI Aortic Dissection, Pneumothorax, Musculoskeletal, Esophageal Spasm GERD, Cholecystitis, Pancreatitis, Zoster, this is not meant to be an all-inclusive list. EKG interpreted by me (3pts min.). @ -[I interpreted as above X-rays interpreted by me (1pt min.). @ -[I interpreted as above CT interpreted by me (1pt min.). @ -[None done] U/S interpreted by me (1pt. min.). @ -[None done] What testing was considered but not performed or refused? (CT, X-rays, U/S, labs)? Why? @ -[None] What meds were considered but not given or refused? Why? @ -[None] Did you discuss the management of the patient with other professionals (professionals i.e. , PA, SENIOR LINUX UNIX ENGINEER, lab, RT, psych nurse, elementary school social worker, postal superintendent, teacher, public health officer, case advocate)? Give summary @ -[No] Was smoking cessation discussed for >3mins.? @ -[No] Was critical care preformed (if so, how long)? @ -[No] Were there social determinants of health that impacted care today? How? (Homelessness, low income, unemployed, alcoholism, drug addiction, transportation, low edu. Level, literacy, decrease access to med. care, halfway, rehab)? @ -[No] Was there de-escalation of care discussed even if they declined (Discuss DNR or withdrawal of care, Hospice)? DNR status @ -[No] What co-morbidities impacted this encounter? (DM, HTN, Smoking, COPD, CAD, Cancer, CVA, ARF, Chemo, Hep., AIDS, mental health diagnosis, sleep apnea, morbid obesity)? @ -[Previous history of atrial fibrillation Was patient admitted / discharged? Hospital course, mention meds given and route, prescriptions, significant lab abnormalities, going to OR and other pertinent info. @ -[See above Undiagnosed new problem with uncertain prognosis? @ -[No] Drug Therapy requiring intensive monitoring for toxicity (Heparin, Nitro, Insulin, Cardizem)? @ -[No] Were any procedures done? @ -[No] Diagnosis/symptom? @ -[Paroxysmal atrial fibrillation Chest pain Hypomagnesemia Acute, or Chronic, or Acute on Chronic? @ -Acute Uncomplicated (without systemic symptoms) or Complicated (systemic symptoms)? @ -[Uncomplicated Side effects of treatment? @ -[No] Exacerbation, Progression, or Severe Exacerbation? @ -[No] Poses a threat to life or bodily function? How? (Chest pain, [place], [place], pneumonia, PE, COPD, DKA, ARF, appy, cholecystitis, CVA, Diverticulitis, Homicidal, Suicidal, threat to staff... and all critical care pts) @ -[No] Disposition Clinical Impression: Paroxysmal atrial fibrillation, Hypomagnesemia Disposition: HOME SELF-CARE Condition: Good Instructions (If sedation given, give patient instructions): A-fib (Atrial Fibrillation) (ED) Prescriptions: Magnesium Oxide [Mag-Ox] 400 mg PO DAILY #15 tablet Magnesium Oxide [Mag-Ox] 400 mg PO DAILY #15 tablet Is patient prescribed a controlled substance at d/c from ED?: No Referrals: Dawna Vu MD [Primary Care Provider] - 1-2 days Jin Hilliard MD [Medical Doctor] - 1-2 days
[2024-02-27 03:54] VITALS: BP 131/56; PULSE 61; RESP 18
== END 2024-02-27 04:13 | disposition home or self-care (01) ==
LOC: EC 01:06
DX: E83.42 Hypomagnesemia (principal); I48.0 Paroxysmal atrial fibrillation; Z79.1 Long term (current) use of non-steroidal anti-inflammatories (NSAID)
CPT/HCPCS: 36415; 93005; 80053; 83735; 84484; 85025; 85610; 85730; 71046; 99285; 96365; J3475

== ENCOUNTER 2024-03-07 10:29 | Emergency (ER) | payer MEDICARE ==
[2024-03-07] MEDS ORDERED: MORPHINE SULFATE 4 MG/ML SYRINGE ONE (11:08)
[2024-03-07] MEDS ORDERED: LIDOCAINE 1% INJ 10MG/ML (20 ML MDV) ONE (11:08)
[2024-03-07] MEDS ORDERED: DIPH,PERTUS(ACELL)TETVAC-LF 0.5 ML VIAL IM ONE (11:08)
[2024-03-07] MEDS ORDERED: SODIUM CHLORIDE 0.9% 1,000 ML BAG ONE (11:10)
[2024-03-07] MEDS ORDERED: cefTRIAXone IN SWFI 1,000 MG/10 ML SYRINGE IVP ONE (14:16)
--- NOTE | 2024-04-11 10:30 | XR ---
Patient: Seferino Perez J Ordering Physician: Unknown, Unknown ID: [id number] Phone, Pager: Phone: N/A Pager: N/A : 1945 Age/Gender: 78Y, M Primary Location: N/A Procedure: XR hand complete LT Augustine dy Date: 03/07/2024 11:53:03 AM EXAMINATION TYPE: XR hand complete LT DATE OF EXAM: 03/24/2024 11:13 AM CLINICAL INDICATION: Laceration COMPARISON: None TECHNIQUE: XR hand complete LT Frontal, lateral and oblique views were obtained. FINDINGS/IMPRESSION: Left thumb laceration with suspected fracture of the base of the volar aspect of the distal phalanx. No radiopaque foreign bodies. Multilevel degeneration changes of the joints of the hand.
== END 2024-03-07 14:45 | disposition home or self-care (01) ==
LOC: EC 10:29
CPT/HCPCS: 12004; 90471; 90715; 96374; 96376; 99283

== ENCOUNTER 2025-01-06 09:19 | Observation (INO) | payer MEDICARE ==
[2025-01-06 09:32] VITALS: TEMP 98.7
--- NOTE | 2025-01-06 10:43 | US ---
EXAMINATION TYPE: US upper ext pseudo RT DATE OF EXAM: 01/06/2025 COMPARISON: NONE CLINICAL INDICATION: Male, 79 years old with history of pain,swelling; Heart cath 12/31 TECHNIQUE: several images taken at area of concern with color and spectral doppler FINDINGS: There is a 1.7x1.4x2.0cm pseudoaneurysm at the distal right radial artery. Neck measures 0 .13cm. Bidirectional flow noted. IMPRESSION: 1. Pseudoaneurysm right radial artery [facility], , 01/06/2025 10:40 AM
[2025-01-06] MEDS ORDERED: NALOXONE 0.4 MG/ML 1 ML VIAL IV PRN (12:36)
[2025-01-06] MEDS ORDERED: ACETAMINOPHEN TAB 325 MG TAB PO PRN (12:36)
--- NOTE | 2025-01-06 12:36 | ED ---
General Adult HPI - General Chief complaint: Recheck/Abnormal Lab/Rx Stated complaint: weakness,R arm pain Time Seen by Provider: 01/06/25 09:33 Source: patient, RN notes reviewed Mode of arrival: wheelchair Limitations: no limitations - History of Present Illness Initial comments: 79-year-old male presents emergency department complaint of right wrist pain, swelling. Patient states he had a heart cath [address] Rangel. He has had increasing swelling, discomfort. Patient states he did have some swelling initially right after the procedure. Patient denies any chest pain, fevers or chills or any other associated symptoms at this time. - Related Data Home Medications Medication Instructions Recorded Confirmed Aspirin [Adult Low Dose Aspirin EC] 81 mg PO DAILY 04/08/16 12/31/24 Celecoxib [CeleBREX] 200 mg PO DAILY 04/08/16 12/31/24 Isosorbide Mononitrate ER [Imdur] 90 mg PO DAILY 04/08/16 12/31/24 Multivit-Min/FA/Lycopen/Lutein 1 tab PO DAILY 04/08/16 12/31/24 [Centrum Silver Tablet] [place]-3 Fatty Acids/Fish Oil [Fish 1,200 mg PO DAILY 04/08/16 12/31/24 Oil 1,000 mg Softgel] Simvastatin [Zocor] 40 mg PO HS 04/08/16 12/31/24 hydroCHLOROthiazide [Hydrodiuril] 6.25 mg PO DAILY 10/26/21 12/31/24 Cholecalciferol [Vitamin D3 (25 125 mcg PO DAILY 10/07/22 12/31/24 Mcg = 1000 Iu)] Vit C/E/Zn/Coppr/Lutein/Zeaxan 1 cap PO BID 10/07/22 12/31/24 [Preservision Areds 2 Softgel] Omeprazole 40 mg PO DAILY 10/18/22 12/31/24 Fluticasone/Umeclidin/Vilanter 1 puff INHALATION DAILY 12/26/24 12/26/24 [Trelegy Ellipta 200-62.5-25] Semaglutide [Ozempic] 0.5 mg SQ FR 12/26/24 12/26/24 Previous Rx's Medication Instructions Recorded Magnesium Oxide [Mag-Ox] 400 mg PO DAILY #15 tablet 02/27/24 Allergies Allergy/AdvReac Type Severity Reaction Status Date / Time bacitracin Allergy Swelling@Contact Verified 01/06/25 09:31 [From Neosporin site ([id number])] neomycin Allergy Swelling@Contact Verified 01/06/25 09:31 [From Neosporin site ([id number])] polymyxin B Allergy Swelling@Contact Verified 01/06/25 09:31 [From Neosporin site ([id number])] Review of Systems ROS Statement: Those systems with pertinent positive or pertinent negative responses have been documented in the HPI. ROS Other: All systems not noted in ROS Statement are negative. Past Medical History Past Medical History: Diabetes Mellitus, GERD/Reflux, Hyperlipidemia, Hypertension, Osteoarthritis (OA), Sleep Apnea/CPAP/BIPAP Additional Past Medical History / Comment(s): HEPATITIS A CHILD (POST TRIP TO [place]). uses CPAP, diet controlled diabetes, hx. colon polyps History of Any Multi-Drug Resistant Organisms: None Reported Past Surgical History: Joint Replacement, Tonsillectomy Additional Past Surgical History / Comment(s): BILATERAL KNEE REPLACED. FATTY TUMOR, cataracts removed, repair of torn/detached right retina, heart cath Past Anesthesia/Blood Transfusion Reactions: No Reported Reaction Past Psychological History: No Psychological Hx Reported Smoking Status: Never smoker General Exam Limitations: no limitations General appearance: alert, in no apparent distress Head exam: Present: atraumatic, normocephalic, normal inspection Neck exam: Present: normal inspection. Absent: tenderness, meningismus, lymphadenopathy Respiratory exam: Present: normal lung sounds bilaterally. Absent: respiratory distress, wheezes, rales, rhonchi, stridor Cardiovascular Exam: Present: regular rate, normal rhythm, normal heart sounds. Absent: systolic murmur, diastolic murmur, rubs, gallop, clicks Extremities exam: Present: other (Right wrist there is a large fluid collection, tenderness palpation, radial pulses palpable, cap refill less than 2 seconds there is ecchymosis extending up the forearm without erythema) Course Vital Signs 01/06/25 09:26 Temperature 98.7 F Pulse Rate 90 Respiratory 17 Rate Blood Pressure 128/83 O2 Sat by Pulse 95 Oximetry Medical Decision Making - Medical Decision Making Was pt. sent in by a medical professional or institution (, PA, RECYCLER, urgent care, hospital, or senior living...) When possible be specific @ -No Did you speak to anyone other than the patient for history (EMS, parent, family, police, friend...)? What history was obtained from this source @ -No Did you review nursing and triage notes (agree or disagree)? Why? @ -I reviewed and agree with nursing and triage notes Were old charts reviewed (outside hosp., previous admission, EMS record, old EKG, old radiological studies, urgent care reports/EKG's, senior living records)? Report findings @ -No old charts were reviewed Differential Diagnosis (chest pain, altered mental status, abdominal pain women, abdominal pain men, vaginal bleeding, weakness, fever, dyspnea, syncope, headache, dizziness, GI bleed, back pain, seizure, CVA, palpatations, mental health, musculoskeletal)? @ -Hematoma, pseudoaneurysm EKG interpreted by me (3pts min.). @ -None X-rays interpreted by me (1pt min.). @ -None done CT interpreted by me (1pt min.). @ -None done U/S interpreted by me (1pt. min.). @ -Ultrasound right wrist showing evidence of 2 cm pseudoaneurysm What testing was considered but not performed or refused? (CT, X-rays, U/S, labs)? Why? @ -None What meds were considered but not given or refused? Why? @ -None Did you discuss the management of the patient with other professionals (professionals i.e. , PA, RECYCLER, lab, RT, psych nurse, director social, field service engineer, teacher, chief environmental commitment officer, pillowcase cutter)? Give summary @ -Discussed the case with Dr. Delaney on-call biomedical service engineer recommends discussed with interventional radiology or possible thrombin injection. I discussed case with Dr. Earl on-call interventional radiologist who stated this is not typically a procedure he would perform. Patient case ameena with Dr. Dunbar for admission for thrombin injection Was smoking cessation discussed for >3mins.? @ -No Was critical care preformed (if so, how long)? @ -No Were there social determinants of health that impacted care today? How? (Homelessness, low income, unemployed, alcoholism, drug addiction, transportation, low edu. Level, literacy, decrease access to med. care, prison, rehab)? @ -No Was there de-escalation of care discussed even if they declined (Discuss DNR or withdrawal of care, Hospice)? DNR status @ -No What co-morbidities impacted this encounter? (DM, HTN, Smoking, COPD, CAD, Cancer, CVA, ARF, Chemo, Hep., AIDS, mental health diagnosis, sleep apnea, morb id obesity)? @ -None Was patient admitted / discharged? Hospital course, mention meds given and route, prescriptions, significant lab abnormalities, going to OR and other pertinent info. @ -[Admit patient found to have pseudoaneurysm on ultrasound. Patient admitted for cardiology evaluation. Undiagnosed new problem with uncertain prognosis? @ -No Drug Therapy requiring intensive monitoring for toxicity (Heparin, Nitro, Insulin, Cardizem)? @ -No Were any procedures done? @ -No Diagnosis/symptom? @ -Pseudoaneurysm right Acute, or Chronic, or Acute on Chronic? @ -Acute Uncomplicated (without systemic symptoms) or Complicated (systemic symptoms)? @ -Comp gated Side effects of treatment? @ -No Exacerbation, Progression, or Severe Exacerbation? @ -No Poses a threat to life or bodily function? How? (Chest pain, [place], [place], pneumonia, PE, COPD, DKA, ARF, appy, cholecystitis, CVA, Diverticulitis, Homicidal, Suicidal, threat to staff... and all critical care pts) @ -No Disposition Clinical Impression: Pseudoaneurysm Disposition: ADMITTED IP TO THIS HOSP Condition: Fair Referrals: Dawna Vu MD [Primary Care Provider] - 1-2 days Time of Disposition: 12:36
[2025-01-06 13:14] LABS: Basophils # (A) 0.11 10*3/uL (0.00-0.10); Basophils % (A) 0.8 %; Eosinophils # (A) 0.29 10*3/uL (0.04-0.35); HCT 47.2 % (39.6-50.0); HGB 15.6 g/dL (13.0-17.0); Lymphocytes # (A) 1.34 10*3/uL (0.90-5.00); Lymphocytes % (A) 9.4 %; MCH 29.1 pg (27.0-32.0); MCHC 33.1 g/dL (32.0-37.0); MCV 87.9 fL (80.0-97.0); Mean Platelet Volume 10.1 fL (9.5-12.2); Monocytes % (A) 4.9 %; Neutrophils % (A) 82.6 %; Platelet Count 320 10*3/uL (140-440); RBC 5.37 10*6/uL (4.40-5.60); RDW 15.2 % (11.5-14.5); WBC 14.29 10*3/uL (4.50-10.00)
[2025-01-06 13:24] LABS: INR 1.1 (<1.2); Partial Thromboplastin Time 29.4 sec (22.0-30.0); Prothrombin Time 12.2 sec (10.0-12.5)
[2025-01-06 13:37] LABS: ALT 24 U/L (4-49); AST 31 U/L (17-59); African American GFR (CKD) 53 (>60 ml/min/1.73 sqM); Albumin 4.8 g/dL (3.5-5.0); Alkaline Phosphatase 74 U/L (38-126); Anion Gap 14 mmol/L; Blood Urea Nitrogen 22 mg/dL (9-20); Calcium 10.2 mg/dL (8.4-10.2); Carbon Dioxide 26 mmol/L (22-30); Chloride 100 mmol/L (98-107); Glucose 95 mg/dL (74-99); Non-African American GFR(CKD) 46 (>60 ml/min/1.73 sqM); Potassium 4.1 mmol/L (3.5-5.1); Sodium 140 mmol/L (137-145); Total Bilirubin 0.8 mg/dL (0.2-1.3); Total Protein 7.5 g/dL (6.3-8.2)
--- NOTE | 2025-01-06 14:24 | P.GSCN ---
History of Present Illness Consult date: 01/06/25 Reason for Consult: Right radial pseudoaneurysm Requesting physician: Tete Vivas History of present illness: This a pleasant 79-year-old male with multiple comorbidities who underwent a cardiac catheterization last week on 12/31/[address] Rangel by ultrasound-guided access of the right radial artery. Apparently after the procedure patient had swelling and pain at the site. Pressure dressing was applied and he was discharged home. He continued to have increased swelling and pain so he came in for further evaluation to the emergency department. He was seen by cardiology initially who apparently wanted interventional radiology consulted for thrombin injection however IR are no longer doing thrombin injections. Vascular surgery was consulted for further evaluation. Patient denies any numbness or tingling in his fingers, he has full range of motion, no signs of ischemia. Does have pain at the wrist above the access site with noted pseudoaneurysm without hematoma with surrounding ecchymosis. Patient is not on any anticoagulation, he does take aspirin 81 mg daily. Review of Systems A 14 point review systems was completed all pertinent positives and negatives as stated in the HPI. Past Medical History Past Medical History: Diabetes Mellitus, GERD/Reflux, Hyperlipidemia, Hypertension, Osteoarthritis (OA), Sleep Apnea/CPAP/BIPAP Additional Past Medical History / Comment(s): HEPATITIS A CHILD (POST TRIP TO [place]). uses CPAP, diet controlled diabetes, hx. colon polyps History of Any Multi-Drug Resistant Organisms: None Reported Past Surgical History: Joint Replacement, Tonsillectomy Additional Past Surgical History / Comment(s): BILATERAL KNEE REPLACED. FATTY TUMOR, cataracts removed, repair of torn/detached right retina, heart cath Past Anesthesia/Blood Transfusion Reactions: No Reported Reaction Past Psychological History: No Psychological Hx Reported Smoking Status: Never smoker Medications and Allergies Home Medications Medication Instructions Recorded Confirmed Type Aspirin [Adult Low Dose Aspirin EC] 81 mg PO DAILY 04/08/16 12/31/24 History Celecoxib [CeleBREX] 200 mg PO DAILY 04/08/16 12/31/24 History Isosorbide Mononitrate ER [Imdur] 90 mg PO DAILY 04/08/16 12/31/24 History Multivit-Min/FA/Lycopen/Lutein 1 tab PO DAILY 04/08/16 12/31/24 History [Centrum Silver Tablet] [place]-3 Fatty Acids/Fish Oil [Fish 1,200 mg PO DAILY 04/08/16 12/31/24 History Oil 1,000 mg Softgel] Simvastatin [Zocor] 40 mg PO HS 04/08/16 12/31/24 History hydroCHLOROthiazide [Hydrodiuril] 6.25 mg PO DAILY 10/26/21 12/31/24 History Cholecalciferol [Vitamin D3 (25 125 mcg PO DAILY 10/07/22 12/31/24 History Mcg = 1000 Iu)] Vit C/E/Zn/Coppr/Lutein/Zeaxan 1 cap PO BID 10/07/22 12/31/24 History [Preservision Areds 2 Softgel] Omeprazole 40 mg PO DAILY 10/18/22 12/31/24 History Magnesium Oxide [Mag-Ox] 400 mg PO DAILY #15 tablet 02/27/24 12/31/24 Rx Fluticasone/Umeclidin/Vilanter 1 puff INHALATION DAILY 12/26/24 12/26/24 History [Trelegy Ellipta 200-62.5-25] Semaglutide [Ozempic] 0.5 mg SQ FR 12/26/24 12/26/24 History Allergies Allergy/AdvReac Type Severity Reaction Status Date / Time bacitracin Allergy Swelling@Contact Verified 01/06/25 09:31 [From Neosporin site ([id number])] neomycin Allergy Swelling@Contact Verified 01/06/25 09:31 [From Neosporin site ([id number])] polymyxin B Allergy Swelling@Contact Verified 01/06/25 09:31 [From Neosporin site ([id number])] Surgical - Exam Vital Signs Temp Pulse Resp BP Pulse Ox 98.7 F 90 17 128/83 95 01/06/25 09:26 01/06/25 09:26 01/06/25 09:26 01/06/25 09:26 01/06/25 09:26 General appearance: The patient is alert, oriented, appears in no acute distress. HET: Head is normocephalic and atraumatic. Pupils are equal and reactive. Neck: Supple. Heart: Regular. Lungs: Equal expansion, normal respiratory effort. Abdomen: Soft, nontender, nondistended. Extremities: Right upper extremity pink and warm. Right wrist access site without any bleeding, proximal to site is noted hematoma and ecchymosis with tenderness to palpation. Patient sensorimotor is intact, good capillary refill, hand is warm to the touch. Palpable radial pulse. Neurological: Alert and oriented. Results - Labs 01/06/25 13:11 01/06/25 13:11 Abnormal Lab Results - Last 24 Hours (Table) 01/06/25 01/06/25 Range/Units 13:11 13:11 WBC 14.29 H (4.50-10.00) 10*3/uL Immature Gran # 0.05 H (0.00-0.04) 10*3/uL Neutrophils # 11.80 H (1.80-7.70) 10*3/uL Basophils # 0.11 H (0.00-0.10) 10*3/uL BUN 22 H (9-20) mg/dL Creatinine 1.45 H (0.66-1.25) mg/dL Diabetes panel 01/06/25 Range/Units 13:11 Sodium 140 (137-145) mmol/L Potassium 4.1 (3.5-5.1) mmol/L Chloride 100 (98-107) mmol/L Carbon Dioxide 26 (22-30) mmol/L BUN 22 H (9-20) mg/dL Creatinine 1.45 H (0.66-1.25) mg/dL Glucose 95 (74-99) mg/dL Calcium 10.2 (8.4-10.2) mg/dL AST 31 (17-59) U/L ALT 24 (4-49) U/L Alkaline Phosphatase 74 (38-126) U/L Total Protein 7.5 (6.3-8.2) g/dL Albumin 4.8 (3.5-5.0) g/dL Calcium panel 01/06/25 Range/Units 13:11 Calcium 10.2 (8.4-10.2) mg/dL Albumin 4.8 (3.5-5.0) g/dL Pituitary panel 01/06/25 Range/Units 13:11 Sodium 140 (137-145) mmol/L Potassium 4.1 (3.5-5.1) mmol/L Chloride 100 (98-107) mmol/L Carbon Dioxide 26 (22-30) mmol/L BUN 22 H (9-20) mg/dL Creatinine 1.45 H (0.66-1.25) mg/dL Glucose 95 (74-99) mg/dL Calcium 10.2 (8.4-10.2) mg/dL Adrenal panel 01/06/25 Range/Units 13:11 Sodium 140 (137-145) mmol/L Potassium 4.1 (3.5-5.1) mmol/L Chloride 100 (98-107) mmol/L Carbon Dioxide 26 (22-30) mmol/L BUN 22 H (9-20) mg/dL Creatinine 1.45 H (0.66-1.25) mg/dL Glucose 95 (74-99) mg/dL Calcium 10.2 (8.4-10.2) mg/dL Total Bilirubin 0.8 (0.2-1.3) mg/dL AST 31 (17-59) U/L ALT 24 (4-49) U/L Alkaline Phosphatase 74 (38-126) U/L Total Protein 7.5 (6.3-8.2) g/dL Albumin 4.8 (3.5-5.0) g/dL - Imaging Comments: Right radial artery pseudoaneurysm ultrasound Is positive for pseudoaneurysm of the right radial artery with measurements of 1.7 x 1.4 x 2.0 cm pseudoaneurysm at the distal right radial artery. Neck measures 0.13 cm. Bidirectional flow noted. Assessment and Plan Assessment: 1. Pseudoaneurysm right radial artery post right radial artery access for cardiac catheterization Plan: Ultrasound reviewed with Dr. Llanos. Due to size likely will seal off with pressure and no need for intervention at this time. Pressure dressing applied to the right wrist. Discussed with patient to keep current pressure dressing in place for next 2 to 3 days. Then may remove and apply benzene operator pressure dressing until seen by vascular surgery within 2 weeks. At that time we will get a repeat arterial ultrasound. Patient is cleared for from vascular surgery for discharge. Plan was discussed with Dr. Dunbar. The impression and plan of care has been dictated as directed. Dr. Mary Wetzel I performed a history and examination of this patient, discussed the same with the dictator. I agree with the dictator's note ,documented as a scribe. Any additional findings or plans will be noted.
--- NOTE | 2025-01-06 14:26 | P.CRDCN ---
History of Present Illness Consult date: 01/06/25 History of present illness: This is a 79-year-old male patient of Dr. Rangel with past medical history of overweight, sleep apnea, CAD, PAD, hypertension, dyslipidemia, diabetes mellitus type 2, paroxysmal atrial fibrillation. We have been asked to evaluate the patient for pseudoaneurysm right wrist. Patient was recently hospitalized last week underwent cardiac catheterization with Dr. Rangel. Patient has had ongoing dyspnea on exertion for the past 1 and half years. He states he had a full pulmonary workup with Dr. Connell which was negative. The neck step was to undergo cardiac catheterization for evaluation of CAD. Patient already underwent a myocardial perfusion imaging stress that was abnormal showing lateral ischemia. Cardiac catheterization was performed on 01/27/2025 which revealed intermediate disease involving the left circumflex in the midportion and negative by IFR, intermediate disease involving the mid RCA in the midportion documented to be negative by IFR. Patient was discharged home the following day. Patient states he has had swelling in the right wrist from before he came home. He states he is To wrapped. Starting yesterday the pain and swelling seem to be getting worse and he saw his PCP who then sent him into the hospital for further evaluation. Patient is seen today in the emergency center waiting for a bed on the [facility] unit. He denies having any chest pain no chest pressure, no syncopal episodes, no palpitations. He denies shortness of breath. He denies numbness and tingling to the right hand. Blood pressure 132/80, heart rate 90, pulse ox 96% on room air. -Ultrasound right upper extremity reveals pseudoaneurysm right radial wrist. -Laboratory studies: WBC 14.2, hemoglobin 15.6, INR 1.1. Electrolytes are normal. BUN 22, creatinine 1.45 -Home cardiac medications according to office note of 12/13/2024: Aspirin 81 mg daily, Eliquis 5 mg twice daily, fish oil, hydrochlorothiazide half of a 12.5 mg tablet, isosorbide mononitrate 30 mg 3 times daily, simvastatin 40 mg daily. Review Of Systems: At the time of my exam: CONSTITUTIONAL: Denies fever or chills. HEENT: Denies blurred vision, vision changes, or eye pain. Denies hemoptysis CARDIOVASCULAR: Denies chest pain. Denies orthopnea. Denies PND. Denies palpitations RESPIRATORY: Denies shortness of breath. GASTROINTESTINAL: Denies abdominal pain. Denies nausea or vomiting. HEMATOLOGIC: Denies bleeding disorders. GENITOURINARY: Denies any blood in urine. SKIN: Denies puritis. Denies rash. Physical examination: Gen: This is 79-year-old male in no acute distress. VS: reviewed HEENT: Head is atraumatic, normocephalic. Pupils equal, round. Sclerae is anicteric. NECK: Supple. No JVD. LUNGS: Clear to auscultation. No wheezes or rhonchi. No intercostal retractions. HEART: Regular rate and rhythm. Systolic murmur. ABDOMEN: Soft No tenderness. EXTREMITIES: Pulsatile mass to the right wrist, strong radial pulse. No pedal edema. No calf tenderness. NEUROLOGICAL: Patient is awake, alert and oriented x3. Assessment: Pseudoaneurysm right radial wrist CAD PAD Hypertension Dyslipidemia Diabetes mellitus type 2 Paroxysmal atrial fibrillation Obstructive sleep apnea on CPAP Plan: Resume patient's home cardiac medications Consult vascular surgery Following discharge from the hospital, patient will follow-up with Dr. Rangel in 1 week. Further recommendations to follow based upon clinical course Thank you kindly for this consultation. Nurse practitioner note has been reviewed, I agree with documented findings and plan of care. Patient was seen and examined. Past Medical History Past Medical History: Diabetes Mellitus, GERD/Reflux, Hyperlipidemia, Hypertension, Osteoarthritis (OA), Sleep Apnea/CPAP/BIPAP Additional Past Medical History / Comment(s): HEPATITIS A CHILD (POST TRIP TO [place]). uses CPAP, diet controlled diabetes, hx. colon polyps History of Any Multi-Drug Resistant Organisms: None Reported Past Surgical History: Joint Replacement, Tonsillectomy Additional Past Surgical History / Comment(s): BILATERAL KNEE REPLACED. FATTY TUMOR, cataracts removed, repair of torn/detached right retina, heart cath Past Anesthesia/Blood Transfusion Reactions: No Reported Reaction Past Psychological History: No Psychological Hx Reported Smoking Status: Never smoker Medications and Allergies Home Medications Medication Instructions Recorded Confirmed Type Aspirin [Adult Low Dose Aspirin EC] 81 mg PO DAILY 04/08/16 12/31/24 History Celecoxib [CeleBREX] 200 mg PO DAILY 04/08/16 12/31/24 History Isosorbide Mononitrate ER [Imdur] 90 mg PO DAILY 04/08/16 12/31/24 History Multivit-Min/FA/Lycopen/Lutein 1 tab PO DAILY 04/08/16 12/31/24 History [Centrum Silver Tablet] [place]-3 Fatty Acids/Fish Oil [Fish 1,200 mg PO DAILY 04/08/16 12/31/24 History Oil 1,000 mg Softgel] Simvastatin [Zocor] 40 mg PO HS 04/08/16 12/31/24 History hydroCHLOROthiazide [Hydrodiuril] 6.25 mg PO DAILY 10/26/21 12/31/24 History Cholecalciferol [Vitamin D3 (25 125 mcg PO DAILY 10/07/22 12/31/24 History Mcg = 1000 Iu)] Vit C/E/Zn/Coppr/Lutein/Zeaxan 1 cap PO BID 10/07/22 12/31/24 History [Preservision Areds 2 Softgel] Omeprazole 40 mg PO DAILY 10/18/22 12/31/24 History Magnesium Oxide [Mag-Ox] 400 mg PO DAILY #15 tablet 02/27/24 12/31/24 Rx Fluticasone/Umeclidin/Vilanter 1 puff INHALATION DAILY 12/26/24 12/26/24 History [Trelegy Ellipta 200-62.5-25] Semaglutide [Ozempic] 0.5 mg SQ FR 12/26/24 12/26/24 History Allergies Allergy/AdvReac Type Severity Reaction Status Date / Time bacitracin Allergy Swelling@Contact Verified 01/06/25 09:31 [facility][id number][facility] neomycin Allergy Swelling@Contact Verified 01/06/25 09:31 [From [facility] ([id number])] polymyxin B Allergy Swelling@Contact Verified 01/06/25 09:31 [facility] ([id number])] Physical Exam Vitals: Vital Signs Temp Pulse Resp BP Pulse Ox 01/06/25 09:26 98.7 F 90 17 128/83 95 Intake and Output 01/05/25 01/06/25 01/06/25 22:59 06:59 14:59 Other: Weight 127.006 kg Results 01/06/25 13:11 01/06/25 13:11 CBC 01/06/25 Range/Units 13:11 WBC 14.29 H (4.50-10.00) 10*3/uL RBC 5.37 (4.40-5.60) 10*6/uL Hgb 15.6 (13.0-17.0) g/dL Hct 47.2 (39.6-50.0) % Plt Count 320 (140-440) 10*3/uL Current Medications Generic Name Dose Route Start Last Admin Trade Name Freq PRN Reason Stop Dose Admin Acetaminophen 650 mg 01/06/25 12:36 Acetaminophen Tab 325 Mg Tab PO Q6HR PRN Mild Pain or Fever > 100.5 Naloxone HCl 0.2 mg 01/06/25 12:36 Naloxone 0.4 Mg/Ml 1 Ml Vial IV Q2M PRN Opioid Reversal Intake and Output 01/05/25 01/06/25 01/06/25 22:59 06:59 14:59 Other: Weight 127.006 kg Patient Weight 01/07/25 06:59 Weight 127.006 kg 01/06/25 13:11
[2025-01-06] MEDS: ONDANSETRON 4 MG/2 ML VIAL IVP STA (15:14)
[2025-01-06] MEDS: HYDROmorphone 0.5 MG/0.5 ML SYRINGE IVP STA (15:15)
[2025-01-06 19:01] VITALS: BP 134/74; PULSE 88; RESP 20
[2025-01-06] MEDS ORDERED: SYMBICORT 160-4.5 MCG INHALER INHALATION SCH (20:00)
[2025-01-06] MEDS ORDERED: NON FORMULARY DRUG (Fish Oil/Dha/Epa [Fish Oil 1,200 Mg Fish Oil] 1 EACH Capsule) PO SCH (21:00)
[2025-01-06] MEDS ORDERED: ATORVASTATIN 20 MG TAB PO SCH (21:00)
[2025-01-06] MEDS ORDERED: MULTIVITAMINS, THERA 1 EACH TAB PO SCH (21:00)
[2025-01-06] MEDS ORDERED: PANTOPRAZOLE 40 MG TABLET PO SCH (21:00)
[2025-01-06] MEDS ORDERED: CHOLECALCIFEROL 125 MCG (5000 IU) TABLET PO SCH (21:00)
[2025-01-06] MEDS ORDERED: VIT A,C & E-LUTEIN-MINERALS 1 EACH TAB PO SCH (21:00)
[2025-01-06] MEDS ORDERED: ASPIRIN 81 MG PO SCH (21:00)
[2025-01-06] MEDS ORDERED: APIXABAN 5 MG TAB PO SCH (21:00)
[2025-01-07] MEDS ORDERED: TIOTROPIUM 2.5 MCG INHALER INHALATION SCH (08:00)
[2025-01-07] MEDS ORDERED: ISOSORBIDE MONONITRATE ER 30 MG TAB.ER.24H PO SCH (09:00)
[2025-01-07] MEDS ORDERED: MELOXICAM 7.5 MG TAB PO SCH (09:00)
[2025-01-07] MEDS ORDERED: hydroCHLOROthiazide 25 MG TAB PO SCH (09:00)
[2025-01-07] MEDS ORDERED: MAGNESIUM OXIDE 400 MG TAB PO SCH (21:00)
[2025-01-10] MEDS ORDERED: NON FORMULARY DRUG (Semaglutide [Ozempic] 1 MG/0.75 ML Each) SQ SCH (09:00)
--- NOTE | 2025-01-10 10:34 | P.HPIM ---
History of Present Illness H&P Date: 01/06/25 Seferino Gurrola is a 79-year-old male patient who presented with concerns of swelling and pain to right radial site from recent cardiac catheterization on 12/31/[address] Hardin. Ultrasound completed of upper extremity showing pseudoaneurysm of the right radial artery. Patient has a past medical history of diabetes mellitus, GERD, hyperlipidemia, hypertension, osteoarthritis, sleep apnea and bilateral knee replacement. Lab work completed showing white blood cell 14.29, hemoglobin 15.6, creatinine 1.45 and bun 22. At this time patient will be admitted cardiology and vascular surgery consulted. Vital signs temp 98.7, heart rate 90, respiratory rate 17, blood pressure 128/83 with pulse ox of 95% on room air. Patient denies chest pain or shortness of breath. Patient denies nausea vomiting or diarrhea. Patient denies any urinary burning or frequency Review of Systems Please refer to HPI otherwise unremarkable Past Medical History Past Medical History: Diabetes Mellitus, GERD/Reflux, Hyperlipidemia, Hypertension, Osteoarthritis (OA), Sleep Apnea/CPAP/BIPAP Additional Past Medical History / Comment(s): HEPATITIS A CHILD (POST TRIP TO [place]). uses CPAP, diet controlled diabetes, hx. colon polyps History of Any Multi-Drug Resistant Organisms: None Reported Past Surgical History: Joint Replacement, Tonsillectomy Additional Past Surgical History / Comment(s): BILATERAL KNEE REPLACED. FATTY TUMOR, cataracts removed, repair of torn/detached right retina, heart cath Past Anesthesia/Blood Transfusion Reactions: No Reported Reaction Past Psychological History: No Psychological Hx Reported Smoking Status: Never smoker Medications and Allergies Home Medications Medication Instructions Recorded Confirmed Type Aspirin [Adult Low Dose Aspirin EC] 81 mg PO HS 04/08/16 01/06/25 History Celecoxib [CeleBREX] 200 mg PO DAILY 04/08/16 01/06/25 History Isosorbide Mononitrate ER [Imdur] 90 mg PO DAILY 04/08/16 01/06/25 History Multivit-Min/FA/Lycopen/Lutein 1 tab PO HS 04/08/16 01/06/25 History [Centrum Silver Tablet] Simvastatin [Zocor] 40 mg PO HS 04/08/16 01/06/25 History hydroCHLOROthiazide [Hydrodiuril] 6.25 mg PO DAILY 10/26/21 01/06/25 History Cholecalciferol [Vitamin D3 (25 125 mcg PO HS 10/07/22 01/06/25 History Mcg = 1000 Iu)] Vit C/E/Zn/Coppr/Lutein/Zeaxan 1 cap PO BID 10/07/22 01/06/25 History [Preservision Areds 2 Softgel] Fluticasone/Umeclidin/Vilanter 1 puff INHALATION RT-DAILY 12/26/24 01/06/25 History [Trelegy Ellipta 200-62.5-25] Apixaban [Eliquis] 5 mg PO BID 01/06/25 01/06/25 History Fish Oil/Dha/Epa [Fish Oil 1,200 1 cap PO HS 01/06/25 01/06/25 History mg Fish Oil] Magnesium Oxide [Mag-Ox] 400 mg PO Q2D@2100 01/06/25 01/06/25 History Omeprazole [PriLOSEC] 20 mg PO HS 01/06/25 01/06/25 History Semaglutide [Ozempic] 1 mg SQ FR 01/06/25 01/06/25 History Allergies Allergy/AdvReac Type Severity Reaction Status Date / Time bacitracin Allergy Swelling@Contact Verified 01/06/25 15:33 [From Neosporin site ([id number])] neomycin Allergy Swelling@Contact Verified 01/06/25 15:33 [From Neosporin site ([id number])] polymyxin B Allergy Swelling@Contact Verified 01/06/25 15:33 [From Neosporin site ([id number])] Physical Exam Vitals: Vital Signs Temp Pulse Resp BP Pulse Ox 01/06/25 13:27 90 18 132/80 96 01/06/25 09:26 98.7 F 90 17 128/83 95 Intake and Output 01/06/25 01/06/25 01/06/25 06:59 14:59 22:59 Other: Weight 127.006 kg Head normocephalic Neck supple Lungs clear to auscultation bilaterally no wheezing or crackles Heart regular rate and rhythm S1-S2, no rub or gallop Abdomen is soft nontender nondistended positive bowel sounds no hepatosplenomegaly Extremities no edema Neuro alert and orientated to 3 Results CBC & Chem 7: 01/06/25 13:11 01/06/25 13:11 Labs: Abnormal Lab Results - Last 24 Hours (Table) 01/06/25 01/06/25 Range/Units 13:11 13:11 WBC 14.29 H (4.50-10.00) 10*3/uL Immature Gran # 0.05 H (0.00-0.04) 10*3/uL Neutrophils # 11.80 H (1.80-7.70) 10*3/uL Basophils # 0.11 H (0.00-0.10) 10*3/uL BUN 22 H (9-20) mg/dL Creatinine 1.45 H (0.66-1.25) mg/dL Assessment and Plan Assessment: Pseudoaneurysm of the right radial wrist status post cardiac catheterization History of coronary artery disease History of peripheral arterial disease History of essential hypertension History of hyperlipidemia History of diabetes mellitus type 2 History of paroxysmal atrial fibrillation History of obstructive sleep apnea Cardiology and vascular surgery consulted Repeat labs ordered in a.m. Time with Patient: Greater than 30 (Greater than 60% of the total time spent in counseling and coordination of care)
--- NOTE | 2025-01-10 10:36 | P.DS ---
Providers Date of admission: 01/06/25 12:46 Expected date of discharge: 01/06/25 Attending physician: Bib Dunbar Consults: 01/06/25 12:36 Consult Physician Urgent Consulting Provider: Tete Vivas Consult Reason/Comments: Pseudoaneurysm Do you want consulting provider notified?: Yes 01/06/25 13:22 Consult Physician Routine Consulting Provider: Mina Oneil Consult Reason/Comments: pseudoaneuysm Do you want consulting provider notified?: Yes Primary care physician: Dawna Vu Hospital Course: Discharge diagnosis Pseudoaneurysm of the right radial wrist status post cardiac catheterization History of coronary artery disease History of peripheral arterial disease History of essential hypertension History of hyperlipidemia History of diabetes mellitus type 2 History of paroxysmal atrial fibrillation History of obstructive sleep apnea Hospital course Seferino Gurrola is a 79-year-old male patient who presented with concerns of swelling and pain to right radial site from recent cardiac catheterization on 12/31/[address] Hardin. Ultrasound completed of upper extremity showing pseudoaneurysm of the right radial artery. Patient has a past medical history of diabetes mellitus, GERD, hyperlipidemia, hypertension, osteoarthritis, sleep apnea and bilateral knee replacement. Lab work completed showing white blood cell 14.29, hemoglobin 15.6, creatinine 1.45 and bun 22. At this time patient will be admitted cardiology and vascular surgery consulted. Vital signs temp 98.7, heart rate 90, respiratory rate 17, blood pressure 128/83 with pulse ox of 95% on room air. Patient denies chest pain or shortness of breath. Patient denies nausea vomiting or diarrhea. Patient denies any urinary burning or frequency On 01/06/2025 patient was evaluated by cardiology and vascular surgery. No need for intervention per vascular surgery patient to keep pressure dressing in place for the next 2 to 3 days and follow-up outpatient with cardiology and vascular surgery. Patient Condition at Discharge: Stable Plan - Discharge Summary New Discharge Prescriptions: Continue Aspirin [Adult Low Dose Aspirin EC] 81 mg PO HS Celecoxib [CeleBREX] 200 mg PO DAILY Isosorbide Mononitrate ER [Imdur] 90 mg PO DAILY Multivit-Min/FA/Lycopen/Lutein [Centrum Silver Tablet] 1 tab PO HS Simvastatin [Zocor] 40 mg PO HS Omeprazole [PriLOSEC] 20 mg PO HS hydroCHLOROthiazide [Hydrodiuril] 6.25 mg PO DAILY Cholecalciferol [Vitamin D3 (25 Mcg = 1000 Iu)] 125 mcg PO HS Vit C/E/Zn/Coppr/Lutein/Zeaxan [Preservision Areds 2 Softgel] 1 cap PO BID Fluticasone/Umeclidin/Vilanter [Trelegy Ellipta 200-62.5-25] 1 puff INHALATION RT-DAILY Apixaban [Eliquis] 5 mg PO BID Semaglutide [Ozempic] 1 mg SQ FR Fish Oil/Dha/Epa [Fish Oil 1,200 mg Fish Oil] 1 cap PO HS Magnesium Oxide [Mag-Ox] 400 mg PO Q2D@2100 Discharge Medication List Aspirin [Adult Low Dose Aspirin EC] 81 mg PO HS 04/08/16 [History] Celecoxib [CeleBREX] 200 mg PO DAILY 04/08/16 [History] Isosorbide Mononitrate ER [Imdur] 90 mg PO DAILY 04/08/16 [History] Multivit-Min/FA/Lycopen/Lutein [Centrum Silver Tablet] 1 tab PO HS 04/08/16 [History] Simvastatin [Zocor] 40 mg PO HS 04/08/16 [History] hydroCHLOROthiazide [Hydrodiuril] 6.25 mg PO DAILY 10/26/21 [History] Cholecalciferol [Vitamin D3 (25 Mcg = 1000 Iu)] 125 mcg PO HS 10/07/22 [History] Vit C/E/Zn/Coppr/Lutein/Zeaxan [Preservision Areds 2 Softgel] 1 cap PO BID 10/07/22 [History] Fluticasone/Umeclidin/Vilanter [Trelegy Ellipta 200-62.5-25] 1 puff INHALATION RT-DAILY 12/26/24 [History] Apixaban [Eliquis] 5 mg PO BID 01/06/25 [History] Fish Oil/Dha/Epa [Fish Oil 1,200 mg Fish Oil] 1 cap PO HS 01/06/25 [History] Magnesium Oxide [Mag-Ox] 400 mg PO Q2D@2100 01/06/25 [History] Omeprazole [PriLOSEC] 20 mg PO HS 01/06/25 [History] Semaglutide [Ozempic] 1 mg SQ FR 01/06/25 [History] Follow up Appointment(s)/Referral(s): Dawna Vu MD [Primary Care Provider] - 1-2 days Zee Yanes DO [STAFF PHYSICIAN] - 2 Weeks Activity/Diet/Wound Care/Special Instructions: Keep current pressure dressing in place for 2 to 3 days. Then may remove. Apply a light pressure dressing with Dg wrap to right wrist until seen by Dr. Viet Wetzel Avoid strenuous activity or heavy lifting with right hand, do not lift anything greater than 5 to 10 pounds. Discharge Disposition: HOME SELF-CARE
== END 2025-01-06 18:50 | disposition home or self-care (01) ==
LOC: EC 09:19 → 6NMEDSUR 12:46
PROVIDERS: ADMIT Internal Medicine; ATTEND Internal Medicine
DX: I72.1 Aneurysm of artery of upper extremity (principal); I73.9 Peripheral vascular disease, unspecified; K21.9 Gastro-esophageal reflux disease without esophagitis; E11.9 Type 2 diabetes mellitus without complications; E78.5 Hyperlipidemia, unspecified; G47.33 Obstructive sleep apnea (adult) (pediatric); I10 Essential (primary) hypertension; I25.10 Atherosclerotic heart disease of native coronary artery without angina pectoris; I48.0 Paroxysmal atrial fibrillation; Z79.82 Long term (current) use of aspirin; Z79.1 Long term (current) use of non-steroidal anti-inflammatories (NSAID); Z79.899 Other long term (current) drug therapy; Z79.51 Long term (current) use of inhaled steroids; Z88.8 Allergy status to other drugs, medicaments and biological substances; Z79.01 Long term (current) use of anticoagulants
CPT/HCPCS: 96374; 96375; 99285; 80053; 85025; 85610; 85730; 93931; G0378; J2405; J1171

== ENCOUNTER 2025-01-15 16:41 | Observation (INO) | payer MEDICARE ==
[2025-01-15] MEDS ORDERED: HYDROmorphone 0.5 MG/0.5 ML SYRINGE IVP PRN (17:58)
[2025-01-15] MEDS ORDERED: NALOXONE 0.4 MG/ML 1 ML VIAL IV PRN (17:58)
--- NOTE | 2025-01-15 18:01 | ED ---
Upper Extremity HPI - General Chief Complaint: Extremity Injury, Upper Stated Complaint: Right Wrist Pain Time Seen by Provider: 01/15/25 17:48 Source: patient, RN notes reviewed Mode of arrival: ambulatory Limitations: no limitations - History of Present Illness Initial Comments: 79-year-old male presenting for pseudoaneurysm of the right wrist status post heart cath on December 31. States he is following with Dr. Llanos and has a surgery scheduled for Monday. He did see Dr. Llanos in the office today however has been experiencing uncontrolled pain despite taking his [place]. States there is increased bruising to the area. - Related Data Home Medications Medication Instructions Recorded Confirmed Aspirin [Adult Low Dose Aspirin EC] 81 mg PO HS 04/08/16 01/06/25 Celecoxib [CeleBREX] 200 mg PO DAILY 04/08/16 01/06/25 Isosorbide Mononitrate ER [Imdur] 90 mg PO DAILY 04/08/16 01/06/25 Multivit-Min/FA/Lycopen/Lutein 1 tab PO HS 04/08/16 01/06/25 [Centrum Silver Tablet] Simvastatin [Zocor] 40 mg PO HS 04/08/16 01/06/25 hydroCHLOROthiazide [Hydrodiuril] 6.25 mg PO DAILY 10/26/21 01/06/25 Cholecalciferol [Vitamin D3 (25 125 mcg PO HS 10/07/22 01/06/25 Mcg = 1000 Iu)] Vit C/E/Zn/Coppr/Lutein/Zeaxan 1 cap PO BID 10/07/22 01/06/25 [Preservision Areds 2 Softgel] Fluticasone/Umeclidin/Vilanter 1 puff INHALATION RT-DAILY 12/26/24 01/06/25 [Trelegy Ellipta 200-62.5-25] Apixaban [Eliquis] 5 mg PO BID 01/06/25 01/06/25 Fish Oil/Dha/Epa [Fish Oil 1,200 1 cap PO HS 01/06/25 01/06/25 mg Fish Oil] Magnesium Oxide [Mag-Ox] 400 mg PO Q2D@2100 01/06/25 01/06/25 Omeprazole [PriLOSEC] 20 mg PO HS 01/06/25 01/06/25 Semaglutide [Ozempic] 1 mg SQ FR 01/06/25 01/06/25 Allergies Allergy/AdvReac Type Severity Reaction Status Date / Time bacitracin Allergy Swelling@Contact Verified 01/15/25 16:48 [From Neosporin site ([id number])] neomycin Allergy Swelling@Contact Verified 01/15/25 16:48 [From Neosporin site ([id number])] polymyxin B Allergy Swelling@Contact Verified 01/15/25 16:48 [From Neosporin site ([id number])] Review of Systems ROS Statement: Those systems with pertinent positive or pertinent negative responses have been documented in the HPI. ROS Other: All systems not noted in ROS Statement are negative. Past Medical History Past Medical History: Diabetes Mellitus, GERD/Reflux, Hyperlipidemia, Hypertension, Osteoarthritis (OA), Sleep Apnea/CPAP/BIPAP Additional Past Medical History / Comment(s): HEPATITIS A CHILD (POST TRIP TO [place]). uses CPAP, diet controlled diabetes, hx. colon polyps History of Any Multi-Drug Resistant Organisms: None Reported Past Surgical History: Joint Replacement, Tonsillectomy Additional Past Surgical History / Comment(s): BILATERAL KNEE REPLACED. FATTY TUMOR, cataracts removed, repair of torn/detached right retina, heart cath Past Anesthesia/Blood Transfusion Reactions: No Reported Reaction Past Psychological History: No Psychological Hx Reported Smoking Status: Never smoker General Exam Limitations: no limitations General appearance: alert, in no apparent distress Head exam: Present: atraumatic, normocephalic, normal inspection Right Elbow exam: Present: normal inspection, full ROM. Absent: tenderness, swelling Forearm Wrist exam: Present: full ROM, tenderness, swelling, ecchymosis, erythema. Absent: normal inspection (Large erythematous mass present on right wrist with pain to palpation), abrasion Hand Wrist exam: Present: full ROM, tenderness. Absent: swelling Vascular: Present: normal capillary refill, radial pulse. Absent: vascular com promise Neurological exam: Present: alert, oriented X3 Skin exam: Present: warm, dry, intact, normal color. Absent: rash Course Vital Signs 01/15/25 16:43 Temperature 97.8 F Pulse Rate 74 Respiratory 17 Rate Blood Pressure 149/83 O2 Sat by Pulse 97 Oximetry Medical Decision Making - Medical Decision Making Was pt. sent in by a medical professional or institution (, PA, RAIL MANAGER, urgent care, hospital, or detention...) When possible be specific @ -No Did you speak to anyone other than the patient for history (EMS, parent, family, police, friend...)? What history was obtained from this source @ -No Did you review nursing and triage notes (agree or disagree)? Why? @ -I reviewed and agree with nursing and triage notes Were old charts reviewed (outside hosp., previous admission, EMS record, old EKG, old radiological studies, urgent care reports/EKG's, detention records)? Report findings @ -No old charts were reviewed Differential Diagnosis (chest pain, altered mental status, abdominal pain women, abdominal pain men, vaginal bleeding, weakness, fever, dyspnea, syncope, headache, dizziness, GI bleed, back pain, seizure, CVA, palpatations, mental health, musculoskeletal)? @ -Not applicable EKG interpreted by me (3pts min.). @ -None X-rays interpreted by me (1pt min.). @ -None done CT interpreted by me (1pt min.). @ -None done U/S interpreted by me (1pt. min.). @ -None done What testing was considered but not performed or refused? (CT, X-rays, U/S, labs)? Why? @ -None What meds were considered but not given or refused? Why? @ -None Did you discuss the management of the patient with other professionals (p andreafessgarrett i.e. , PA, RAIL MANAGER, lab, RT, psych nurse, psychologist social, podiatry doctor, teacher, gifts officer, rifle case repairer)? Give summary @ -I spoke with Dr. Llanos who states she would like patient admitted to medicine and she will likely push the surgery to tomorrow, requested to hold Eliquis at this time for surgery. I then spoke with Dr. Dunbar who accepts admission Was smoking cessation discussed for >3mins.? @ -No Was critical care preformed (if so, how long)? @ -No Were there social determinants of health that impacted care today? How? (Homelessness, low income, unemployed, alcoholism, drug addiction, transportation, low edu. Level, literacy, decrease access to med. care, [facility], rehab)? @ -No Was there de-escalation of care discussed even if they declined (Discuss DNR or withdrawal of care, Hospice)? DNR status @ -No What co-morbidities impacted this encounter? (DM, HTN, Smoking, COPD, CAD, Cancer, CVA, ARF, Chemo, Hep., AIDS, mental health diagnosis, sleep apnea, morbid obesity)? @ -None Was patient admitted / discharged? Hospital course, mention meds given and route, prescriptions, significant lab abnormalities, going to OR and other pertinent info. @ -Admitted. 79-year-old male presenting for uncontrolled pain of pseudoaneurysm of right wrist status post heart catheterization on December 31. Patient is scheduled for surgery with Dr. Llanos for pseudoaneurysm in 2 days. Right upper extremity is neurovascularly intact. Patient will be admitted to medicine for pain control with Dr. Llanos on consult. Patient is agreeable to plan. Case was discussed with my ED attending Dr. Torre. Undiagnosed new problem with uncertain prognosis? @ -No Drug Therapy requiring intensive monitoring for toxicity (Heparin, Nitro, Insulin, Cardizem)? @ -No Were any procedures done? @ -No Diagnosis/symptom? @ -Pseudoaneurysm of right wrist Acute, or Chronic, or Acute on Chronic? @ -Acute Uncomplicated (without systemic symptoms) or Complicated (systemic symptoms)? @ -Uncomplicated Side effects of treatment? @ -No Exacerbation, Progression, or Severe Exacerbation? @ -No Poses a threat to life or bodily function? How? (Chest pain, [place], IA, pneumonia, PE, COPD, DKA, ARF, appy, cholecystitis, CVA, Diverticulitis, Homicidal, Suicidal, threat to staff... and all critical care pts) @ -No Disposition Clinical Impression: Pseudoaneurysm Disposition: ADMITTED IP TO THIS [facility] Time of Disposition: 18:01
[2025-01-15] MEDS: HYDROmorphone 1 MG/ML 1 ML SYRINGE IM STA (18:15)
[2025-01-15 18:50] LABS: Basophils # (A) 0.02 10*3/uL (0.00-0.10); Basophils % (A) 0.1 %; Eosinophils # (A) 0.02 10*3/uL (0.04-0.35); Eosinophils % (A) 0.1 %; HCT 41.8 % (39.6-50.0); Lymphocytes # (A) 0.99 10*3/uL (0.90-5.00); Lymphocytes % (A) 6.1 %; MCH 28.6 pg (27.0-32.0); MCHC 33.5 g/dL (32.0-37.0); MCV 85.3 fL (80.0-97.0); Mean Platelet Volume 10.5 fL (9.5-12.2); Monocytes # (A) 0.62 10*3/uL (0.20-1.00); Monocytes % (A) 3.8 %; Neutrophils # (A) 14.28 10*3/uL (1.80-7.70); Neutrophils % (A) 88.2 %; Platelet Count 319 10*3/uL (140-440); RDW 15.6 % (11.5-14.5); WBC 16.21 10*3/uL (4.50-10.00)
--- NOTE | 2025-01-15 18:50 | XR ---
EXAMINATION TYPE: XR chest 2V DATE OF EXAM: 01/15/2025 6:47 PM COMPARISON: Chest radiograph 12/24/2024. CLINICAL INDICATION: Male, 79 years old with history of pre op; [facility] TECHNIQUE: XR chest 2V Frontal and lateral views of the chest. FINDINGS: Lungs/Pleura: There is no evidence of pleural effusion, focal consolidation, or pneumothorax. Mild r ight lung base scarring/atelectasis. Pulmonary vascularity: Unremarkable. Heart/mediastinum: Cardiomediastinal silhouette is unremarkable. Musculoskeletal: No acute osseous pathology. Other findings: None IMPRESSION: No acute cardiopulmonary disease/process. [facility], , 01/15/2025 6:48 PM
[2025-01-15] MEDS: HYDROmorphone 1 MG/ML 1 ML SYRINGE IVP PRN (18:57)
[2025-01-15 19:00] LABS: INR 1.1 (<1.2); Partial Thromboplastin Time 24.2 sec (22.0-30.0); Prothrombin Time 11.6 sec (10.0-12.5)
[2025-01-15 19:06] LABS: ALT 21 U/L (4-49); AST 26 U/L (17-59); African American GFR (CKD) 61 (>60 ml/min/1.73 sqM); Albumin 4.2 g/dL (3.5-5.0); Alkaline Phosphatase 111 U/L (38-126); Anion Gap 14 mmol/L; Blood Urea Nitrogen 37 mg/dL (9-20); Calcium 9.7 mg/dL (8.4-10.2); Carbon Dioxide 22 mmol/L (22-30); Chloride 101 mmol/L (98-107); Glucose 181 mg/dL (74-99); Non-African American GFR(CKD) 53 (>60 ml/min/1.73 sqM); Potassium 3.3 mmol/L (3.5-5.1); Sodium 137 mmol/L (137-145); Total Bilirubin 0.6 mg/dL (0.2-1.3); Total Protein 6.7 g/dL (6.3-8.2)
--- NOTE | 2025-01-15 19:34 | P.GSCN ---
History of Present Illness Consult date: 01/15/25 History of present illness: The patient is a 79-year-old male with a right radial pseudoaneurysm from a heart catheterization. He was seen in the office earlier today and found to have continuation of the pseudoaneurysm initially was smaller in size therefore thoughts were compression with potentially improved this however this was unsuccessful and after today's visit he does have significantly more pain and therefore he presented to the ER due to this Past Medical History Past Medical History: Diabetes Mellitus, GERD/Reflux, Hyperlipidemia, Hypertension, Osteoarthritis (OA), Sleep Apnea/CPAP/BIPAP Additional Past Medical History / Comment(s): HEPATITIS A CHILD (POST TRIP TO [place]). uses CPAP, diet controlled diabetes, hx. colon polyps History of Any Multi-Drug Resistant Organisms: None Reported Past Surgical History: Joint Replacement, Tonsillectomy Additional Past Surgical History / Comment(s): BILATERAL KNEE REPLACED. FATTY TUMOR, cataracts removed, repair of torn/detached right retina, heart cath Past Anesthesia/Blood Transfusion Reactions: No Reported Reaction Past Psychological History: No Psychological Hx Reported Smoking Status: Never smoker Medications and Allergies Home Medications Medication Instructions Recorded Confirmed Type Aspirin [Adult Low Dose Aspirin EC] 81 mg PO HS 04/08/16 01/06/25 History Celecoxib [CeleBREX] 200 mg PO DAILY 04/08/16 01/06/25 History Isosorbide Mononitrate ER [Imdur] 90 mg PO DAILY 04/08/16 01/06/25 History Multivit-Min/FA/Lycopen/Lutein 1 tab PO HS 04/08/16 01/06/25 History [Centrum Silver Tablet] Simvastatin [Zocor] 40 mg PO HS 04/08/16 01/06/25 History hydroCHLOROthiazide [Hydrodiuril] 6.25 mg PO DAILY 10/26/21 01/06/25 History Cholecalciferol [Vitamin D3 (25 125 mcg PO HS 10/07/22 01/06/25 History Mcg = 1000 Iu)] Vit C/E/Zn/Coppr/Lutein/Zeaxan 1 cap PO BID 10/07/22 01/06/25 History [Preservision Areds 2 Softgel] Fluticasone/Umeclidin/Vilanter 1 puff INHALATION RT-DAILY 12/26/24 01/06/25 History [Trelegy Ellipta 200-62.5-25] Apixaban [Eliquis] 5 mg PO BID 01/06/25 01/06/25 History Fish Oil/Dha/Epa [Fish Oil 1,200 1 cap PO HS 01/06/25 01/06/25 History mg Fish Oil] Magnesium Oxide [Mag-Ox] 400 mg PO Q2D@2100 01/06/25 01/06/25 History Omeprazole [PriLOSEC] 20 mg PO HS 01/06/25 01/06/25 History Semaglutide [Ozempic] 1 mg SQ FR 01/06/25 01/06/25 History Allergies Allergy/AdvReac Type Severity Reaction Status Date / Time bacitracin Allergy Swelling@Contact Verified 01/15/25 16:48 [From Neosporin site ([id number])] neomycin Allergy Swelling@Contact Verified 01/15/25 16:48 [From Neosporin site ([id number])] polymyxin B Allergy Swelling@Contact Verified 01/15/25 16:48 [From Neosporin site ([id number])] Surgical - Exam Vital Signs Temp Pulse Resp BP Pulse Ox 97.8 F 74 17 149/83 97 01/15/25 16:43 01/15/25 16:43 01/15/25 16:43 01/15/25 16:43 01/15/25 16:43 General Is a pleasant cooperative male in no acute distress. No respiratory distress. Abdomen is soft obese nontender. Right upper extremity with large pulsatile mass. Bedside ultrasound performed does not appear to have any significant changes from the ultrasound earlier today. Still visualized areas of active pseudoaneurysm. Palpable radial pulse distally Results - Labs 01/15/25 18:44 01/15/25 18:44 Abnormal Lab Results - Last 24 Hours (Table) 01/15/25 01/15/25 Range/Units 18:44 18:44 WBC 16.21 H (4.50-10.00) 10*3/uL Immature Gran # 0.28 H (0.00-0.04) 10*3/uL Neutrophils # 14.28 H (1.80-7.70) 10*3/uL Eosinophils # 0.02 L (0.04-0.35) 10*3/uL Potassium 3.3 L (3.5-5.1) mmol/L BUN 37 H (9-20) mg/dL Creatinine 1.28 H (0.66-1.25) mg/dL Glucose 181 H (74-99) mg/dL Diabetes panel 01/15/25 Range/Units 18:44 Sodium 137 (137-145) mmol/L Potassium 3.3 L (3.5-5.1) mmol/L Chloride 101 (98-107) mmol/L Carbon Dioxide 22 (22-30) mmol/L BUN 37 H (9-20) mg/dL Creatinine 1.28 H (0.66-1.25) mg/dL Glucose 181 H (74-99) mg/dL Calcium 9.7 (8.4-10.2) mg/dL AST 26 (17-59) U/L ALT 21 (4-49) U/L Alkaline Phosphatase 111 (38-126) U/L Total Protein 6.7 (6.3-8.2) g/dL Albumin 4.2 (3.5-5.0) g/dL Calcium panel 01/15/25 Range/Units 18:44 Calcium 9.7 (8.4-10.2) mg/dL Albumin 4.2 (3.5-5.0) g/dL Pituitary panel 01/15/25 Range/Units 18:44 Sodium 137 (137-145) mmol/L Potassium 3.3 L (3.5-5.1) mmol/L Chloride 101 (98-107) mmol/L Carbon Dioxide 22 (22-30) mmol/L BUN 37 H (9-20) mg/dL Creatinine 1.28 H (0.66-1.25) mg/dL Glucose 181 H (74-99) mg/dL Calcium 9.7 (8.4-10.2) mg/dL Adrenal panel 01/15/25 Range/Units 18:44 Sodium 137 (137-145) mmol/L Potassium 3.3 L (3.5-5.1) mmol/L Chloride 101 (98-107) mmol/L Carbon Dioxide 22 (22-30) mmol/L BUN 37 H (9-20) mg/dL Creatinine 1.28 H (0.66-1.25) mg/dL Glucose 181 H (74-99) mg/dL Calcium 9.7 (8.4-10.2) mg/dL Total Bilirubin 0.6 (0.2-1.3) mg/dL AST 26 (17-59) U/L ALT 21 (4-49) U/L Alkaline Phosphatase 111 (38-126) U/L Total Protein 6.7 (6.3-8.2) g/dL Albumin 4.2 (3.5-5.0) g/dL Assessment and Plan Assessment: Radial artery pseudoaneurysm after heart catheterization Right upper extremity pain secondary to above Plan: Will plan for admission of the patient to the medicine team for continued medical management and monitoring. Will plan for repair of the right upper extremity radial artery pseudoaneurysm tomorrow. N.p.o. after midnight. Risks and benefits of the procedure were discussed with the patient including but not limited to bleeding, infection injury to the vessel and further surgery needed as well as neurologic compromise. He seemed understands and is willing to proceed.
[2025-01-15] MEDS: hydrALAZINE HCL 20 MG/ML 1 ML VIAL IVP PRN (23:59)
[2025-01-16 00:17] LABS: Appearance,Urine Clear (Clear); Bacteria,Urine Rare /hpf; Bilirubin,Urine Negative (Negative); Blood,Urine Negative (Negative); Color,Urine Yellow; Glucose,Urine (UA) Negative (Negative); Hyaline Casts,Urine 11 /lpf (0-2); Ketones,Urine Negative (Negative); Leukocyte Esterase,Urine Negative (Negative); Mucus,Urine Rare /hpf; Nitrite,Urine Negative (Negative); PH, Urine 5.5 (5.0-8.0); Protein,Urine 1+ (Negative); RBC,Urine 17 /hpf (0-5); Specific Gravity,Urine 1.025 (1.001-1.035); Squamous Epithelial Cell,Urine <1 /hpf (0-4); Urobilinogen,Urine <2.0 mg/dL (<2.0); WBC,Urine 2 /hpf (0-5)
[2025-01-16] MEDS: TIOTROPIUM 2.5 MCG INHALER INHALATION SCH (08:08)
[2025-01-16] MEDS: SYMBICORT 160-4.5 MCG INHALER INHALATION SCH (08:08)
[2025-01-16 08:24] LABS: HCT 43.1 % (39.6-50.0); HGB 14.4 g/dL (13.0-17.0); MCH 28.8 pg (27.0-32.0); MCHC 33.4 g/dL (32.0-37.0); MCV 86.2 fL (80.0-97.0); Mean Platelet Volume 9.7 fL (9.5-12.2); Platelet Count 264 10*3/uL (140-440); RDW 15.9 % (11.5-14.5); WBC 15.33 10*3/uL (4.50-10.00)
[2025-01-16] MEDS: ISOSORBIDE MONONITRATE ER 30 MG TAB.ER.24H PO SCH (08:27)
[2025-01-16] MEDS: MELOXICAM 7.5 MG TAB PO SCH (08:27)
[2025-01-16] MEDS: VIT A,C & E-LUTEIN-MINERALS 1 EACH TAB PO SCH (08:29)
[2025-01-16] MEDS: hydroCHLOROthiazide 12.5 MG CAP PO SCH (08:35)
[2025-01-16 08:40] LABS: African American GFR (CKD) 82 (>60 ml/min/1.73 sqM); Anion Gap 7 mmol/L; Blood Urea Nitrogen 28 mg/dL (9-20); Calcium 9.3 mg/dL (8.4-10.2); Carbon Dioxide 26 mmol/L (22-30); Chloride 103 mmol/L (98-107); Glucose 95 mg/dL (74-99); Non-African American GFR(CKD) 71 (>60 ml/min/1.73 sqM); Potassium 2.9 mmol/L (3.5-5.1); Sodium 136 mmol/L (137-145)
[2025-01-16] MEDS ORDERED: NON FORMULARY DRUG (Vit C/E/Zn/Coppr/Lutein/Zeaxan [Preservision Areds 2 Softgel] 1 EACH C PO SCH (09:00)
[2025-01-16] MEDS ORDERED: Potassium Replacement Protocol 1 EACH MISC MISCELLANE PRN ×2 (09:47→10:34)
[2025-01-16] MEDS: POTASSIUM CHLORIDE ER 20 MEQ TAB.ER PO SCH (10:02)
--- NOTE | 2025-01-16 11:27 | P.HPIM ---
History of Present Illness H&P Date: 01/16/25 Seferino Perez is a 79-year-old male patient of Dr. Guillen who presented with concerns of pseudoaneurysm of the right wrist. Patient was recently here for same thing and discharged on 01/10/2025. At that time patient was advised to keep pressure dressing over the next 2 to 3 days the patient reports there was minimal improvement presenting back to the ER for further evaluation. Patient recently underwent cardiac catheterization on 12/31/[address] Hardin with right radial approach. Chest x-ray completed showing no acute cardiopulmonary process or disease. Labwork completed showing white blood cell 16.21, potassium 3.3, creatinine 1.28 bun 37 UA negative for infection. Patient has past medical history of diabetes mellitus, GERD, hyperlipidemia, hypertension, osteoarthritis and ex-smoker. At this time patient will be admitted. Vascular surgery has been consulted with tentative plans for repair with of the right upper extremity radial artery. At this time patient denies chest pain or shortness of breath. Patient denies nausea vomiting or diarrhea. Patient denies any urinary burning or frequency Review of Systems Please refer to HPI otherwise unremarkable Past Medical History Past Medical History: Diabetes Mellitus, GERD/Reflux, Hyperlipidemia, Hypertension, Osteoarthritis (OA), Sleep Apnea/CPAP/BIPAP Additional Past Medical History / Comment(s): HEPATITIS A CHILD (POST TRIP TO [place]). uses CPAP, diet controlled diabetes, hx. colon polyps History of Any Multi-Drug Resistant Organisms: None Reported Past Surgical History: Joint Replacement, Tonsillectomy Additional Past Surgical History / Comment(s): BILATERAL KNEE REPLACED. FATTY TUMOR, cataracts removed, repair of torn/detached right retina, heart cath, surgery on left hand Past Anesthesia/Blood Transfusion Reactions: No Reported Reaction Smoking Status: Former smoker - Past Family History Father Family Medical History: Cancer Mother Additional Family Medical History / Comment(s): empysema Medications and Allergies Home Medications Medication Instructions Recorded Confirmed Type Aspirin [Adult Low Dose Aspirin EC] 81 mg PO HS 04/08/16 01/15/25 History Celecoxib [CeleBREX] 200 mg PO DAILY 04/08/16 01/15/25 History Isosorbide Mononitrate ER [Imdur] 90 mg PO DAILY 04/08/16 01/15/25 History Multivit-Min/FA/Lycopen/Lutein 1 tab PO HS 04/08/16 01/15/25 History [Centrum Silver Tablet] Simvastatin [Zocor] 40 mg PO HS 04/08/16 01/15/25 History hydroCHLOROthiazide [Hydrodiuril] 6.25 mg PO DAILY 10/26/21 01/15/25 History Vit C/E/Zn/Coppr/Lutein/Zeaxan 1 cap PO BID 10/07/22 01/15/25 History [Preservision Areds 2 Softgel] Fluticasone/Umeclidin/Vilanter 1 puff INHALATION RT-DAILY 12/26/24 01/15/25 History [Trelegy Ellipta 200-62.5-25] Apixaban [Eliquis] 5 mg PO BID 01/06/25 01/15/25 History Fish Oil/Dha/Epa [Fish Oil 1,200 1 cap PO HS 01/06/25 01/15/25 History mg Fish Oil] Magnesium Oxide [Mag-Ox] 400 mg PO Q2D@2100 01/06/25 01/15/25 History Omeprazole [PriLOSEC] 20 mg PO HS 01/06/25 01/15/25 History Semaglutide [Ozempic] 1 mg SQ FR 01/06/25 01/15/25 History Cholecalciferol [Vitamin D3 (125 125 mcg PO HS 01/15/25 01/15/25 History Mcg = 5000 Iu)] HYDROcodone/APAP 5-325MG [[place] 2 tab PO Q6HR 01/15/25 01/15/25 History 5-325] Allergies Allergy/AdvReac Type Severity Reaction Status Date / Time bacitracin Allergy Swelling@Contact Verified 01/15/25 19:58 [From Neosporin site ([id number])] neomycin Allergy Swelling@Contact Verified 01/15/25 19:58 [From Neosporin site ([id number])] polymyxin B Allergy Swelling@Contact Verified 01/15/25 19:58 [From Neosporin site ([id number])] Physical Exam Vitals: Vital Signs Temp Pulse Pulse Resp BP BP Pulse Ox 01/16/25 08:34 97.5 F L 58 L 18 159/83 96 01/16/25 06:20 163/78 01/16/25 03:22 60 18 158/76 97 01/15/25 23:44 178/79 01/15/25 23:13 97.5 F L 62 18 201/83 97 01/15/25 22:15 98.0 F 63 18 163/74 96 01/15/25 22:00 63 18 186/78 97 01/15/25 19:38 63 14 159/76 98 01/15/25 19:04 72 19 148/69 95 01/15/25 16:43 97.8 F 74 17 149/83 97 Intake and Output 01/15/25 01/16/25 01/16/25 22:59 06:59 14:59 Other: Voiding Method Toilet Toilet # Voids 1 Weight 127.006 kg 127.006 kg Pseudoaneurysm of the right radial wrist status post cardiac catheterization. Tentative plans for surgical intervention 01/16/2025 History of coronary artery disease History of peripheral arterial disease History of essential hypertension History of hyperlipidemia History of diabetes mellitus type 2 History of paroxysmal atrial fibrillation History of obstructive sleep apnea DVT prophylaxis SCDs. GI prophylaxis Pepcid Vascular surgery consulted Tentative plans for surgical intervention on 01/16/2025 Potassium to be replaced per protocol Repeat labs in a.m. Results CBC & Chem 7: 01/16/25 08:14 01/16/25 08:14 Labs: Abnormal Lab Results - Last 24 Hours (Table) 01/15/25 01/15/25 01/16/25 Range/Units 18:44 18:44 00:03 WBC 16.21 H (4.50-10.00) 10*3/uL Immature Gran # 0.28 H (0.00-0.04) 10*3/uL Neutrophils # 14.28 H (1.80-7.70) 10*3/uL Eosinophils # 0.02 L (0.04-0.35) 10*3/uL Sodium (137-145) mmol/L Potassium 3.3 L (3.5-5.1) mmol/L BUN 37 H (9-20) mg/dL Creatinine 1.28 H (0.66-1.25) mg/dL Glucose 181 H (74-99) mg/dL Urine Protein 1+ H (Negative) Urine RBC 17 H (0-5) /hpf Urine Bacteria Rare H (None) /hpf Hyaline Casts 11 H (0-2) /lpf Urine Mucus Rare H (None) /hpf 01/16/25 01/16/25 Range/Units 08:14 08:14 WBC 15.33 H (4.50-10.00) 10*3/uL Immature Gran # (0.00-0.04) 10*3/uL Neutrophils # (1.80-7.70) 10*3/uL Eosinophils # (0.04-0.35) 10*3/uL Sodium 136 L (137-145) mmol/L Potassium 2.9 L (3.5-5.1) mmol/L BUN 28 H (9-20) mg/dL Creatinine (0.66-1.25) mg/dL Glucose (74-99) mg/dL Urine Protein (Negative) Urine RBC (0-5) /hpf Urine Bacteria (None) /hpf Hyaline Casts (0-2) /lpf Urine Mucus (None) /hpf Thrombosis Risk Factor Assmnt - Choose All That Apply Any of the Below Risk Factors Present?: Yes Each Factor Represents 1 point: Obesity (BMI >25), Varicose veins Each Risk Factor Represents 2 Points: Age 61-74 years Thrombosis Risk Factor Assessment Total Risk Factor Score: 4 Thrombosis Risk Factor Assessment Level: Moderate Risk
[2025-01-16] MEDS: IV FLUID CONTINUATION 1,000 ML IV ONE ×2 (11:35→15:50)
[2025-01-16] MEDS: LACTATED RINGERS 1,000 ML BAG IV STA (11:37)
[2025-01-16] MEDS: DEXAMETHASONE SOD PHOSPHATE 4 MG/ML 1 ML VIAL IVP STA (11:48)
[2025-01-16] MEDS: ONDANSETRON 4 MG/2 ML VIAL IVP PRN (11:48)
[2025-01-16] MEDS: fentaNYL (PF) 50 MCG/ML 2 ML AMP IVP PRN (11:59)
[2025-01-16] MEDS: POTASSIUM CHLORIDE 10 MEQ in WATER FOR INJECTION 1 100ML.BAG IVPB SCH (12:13)
[2025-01-16] MEDS ORDERED: LIDOCAINE 1% INJ 10MG/ML (20 ML MDV) ONE (13:38)
[2025-01-16] MEDS ORDERED: MIDAZOLAM 2 MG/2 ML VIAL ONE (13:38)
[2025-01-16] MEDS ORDERED: PROPOFOL 10 MG/ML 20 ML VIAL IV ONE (13:38)
[2025-01-16] MEDS ORDERED: KETAMINE HCL IN 0.9 % NACL 50 MG/5 ML SYRINGE ONE (13:38)
[2025-01-16] MEDS ORDERED: fentaNYL (PF) 50 MCG/ML 2 ML AMP ONE (13:38)
[2025-01-16] MEDS: LIDOCAINE 1% INJ 10MG/ML (20 ML MDV) SQ ONE ×2 (14:02)
[2025-01-16] MEDS: SODIUM CHLORIDE 0.9% 500 ML 500 ML with HEPARIN SODIUM,PORCINE (1 ML) 5,000 UNIT IV ONE (14:06)
[2025-01-16] MEDS: ceFAZolin 2 GM in SODIUM CHLORIDE 0.9% 500 ML 500 ML IRRIGATION ONE (14:07)
[2025-01-16 15:58] LABS: Glucose,Whole Blood 111 mg/dL (70-110)
--- NOTE | 2025-01-16 17:10 | P.OP ---
Date of Procedure: 01/16/25 Description of Procedure: Preoperative diagnosis: Right upper extremity radial artery pseudoaneurysm status post heart catheterization Postoperative diagnosis: Same Procedure: Open exploration right upper extremity Radial artery repair, control of hemorrhage Surgeon: Zee Llanos D.O. EBL: 40 cc IV fluids: See records Urine output: Not measured Drains: None Complications: None immediately apparent Condition: Stable Operative indication and findings: Patient is a 79-year-old male who previous underwent a radial artery access for heart catheterization. At the time there was no further interventions performed however unfortunately subsequently he developed a radial artery pseudoaneurysm initially was small in size but upon repeat imaging it had grown and due to this was becoming more painful therefore he presented to the ER due to continuation of pain and he was scheduled to undergo repair. Risk and benefits were discussed. He seemingly understood and was willing to proceed. Procedure in detail: Patient was brought to the op suite placed in supine position. The right upper extremity was prepped and draped in usual sterile fashion. A preprocedural timeout was performed, all parties were in agreement. The area was anesthetized with 1% lidocaine plain and starting distally to the area of dilation and hematoma, the skin incision was made carried down through the subcutaneous tissue to the level of the radial artery. Was identified and encircled. At that point decision was made to traverse the remainder of the soft tissue overlying the radial artery and through the pseudoaneurysm. The artery was identified and the bleed was controlled with interrupted sutures of 6-0 Prolene. The area was copiously irrigated and the thrombus was extruded from the subcutaneous tissues. There was no further pulsatile bleeding. There was adequate pulse proximally and distally to the repair. The surrounding tissues were mildly oozing therefore the decision was made to place a drain. This was placed in standard fashion and sutured with a 3-0 nylon. After further antibiotic irrigation and evidence of no further bleeding, the wound was reapproximated in a multilayer fashion with 3-0 Vicryl in the deep and subcutaneous tissues and running 4-0 Monocryl the skin glue was placed on with a mild pressure dressing to help eliminate further seroma.patient was transferred to recovery in stable condition having tolerated this procedure well
[2025-01-16] MEDS: ceFAZolin 3 GM in SODIUM CHLORIDE 0.9% 100 ML IVPB ONE (18:31)
[2025-01-16] MEDS: ceFAZolin 2 GM in DEXTROSE 5% IN WATER 50 ML IVPB STA (19:49)
[2025-01-16] MEDS: ATORVASTATIN 20 MG TAB PO SCH (20:00)
[2025-01-16] MEDS: CHOLECALCIFEROL 125 MCG (5000 IU) TABLET PO SCH (20:00)
[2025-01-16] MEDS: MAGNESIUM OXIDE 400 MG TAB PO SCH (20:00)
[2025-01-16 20:04] VITALS: RESP 18
[2025-01-16 20:12] LABS: Glucose,Whole Blood 151 mg/dL (70-110)
[2025-01-16] MEDS ORDERED: NON FORMULARY DRUG (Fish Oil/Dha/Epa [Fish Oil 1,200 Mg Fish Oil] 1 EACH Capsule) PO SCH (21:00)
[2025-01-17] MEDS: HYDROmorphone 0.5 MG/0.5 ML SYRINGE IVP PRN (05:05)
[2025-01-17 05:55] LABS: Glucose,Whole Blood 97 mg/dL (70-110)
[2025-01-17 07:56] VITALS: TEMP 97.7
[2025-01-17 08:15] LABS: Basophils # (A) 0.04 10*3/uL (0.00-0.10); Basophils % (A) 0.2 %; Eosinophils # (A) 0.14 10*3/uL (0.04-0.35); Eosinophils % (A) 0.8 %; HCT 38.1 % (39.6-50.0); HGB 12.8 g/dL (13.0-17.0); Lymphocytes # (A) 1.92 10*3/uL (0.90-5.00); Lymphocytes % (A) 11.4 %; MCH 28.9 pg (27.0-32.0); MCHC 33.6 g/dL (32.0-37.0); Mean Platelet Volume 10.5 fL (9.5-12.2); Monocytes # (A) 1.11 10*3/uL (0.20-1.00); Monocytes % (A) 6.6 %; Neutrophils # (A) 13.35 10*3/uL (1.80-7.70); Neutrophils % (A) 79.5 %; Platelet Count 257 10*3/uL (140-440); RBC 4.43 10*6/uL (4.40-5.60); WBC 16.81 10*3/uL (4.50-10.00)
[2025-01-17 08:49] LABS: ALT 16 U/L (4-49); AST 21 U/L (17-59); African American GFR (CKD) 77 (>60 ml/min/1.73 sqM); Albumin 3.6 g/dL (3.5-5.0); Alkaline Phosphatase 75 U/L (38-126); Anion Gap 8 mmol/L; Blood Urea Nitrogen 22 mg/dL (9-20); Calcium 9.3 mg/dL (8.4-10.2); Carbon Dioxide 24 mmol/L (22-30); Chloride 104 mmol/L (98-107); Glucose 105 mg/dL (74-99); Non-African American GFR(CKD) 66 (>60 ml/min/1.73 sqM); Potassium 3.8 mmol/L (3.5-5.1); Sodium 136 mmol/L (137-145); Total Bilirubin 0.5 mg/dL (0.2-1.3); Total Protein 5.7 g/dL (6.3-8.2)
[2025-01-17] MEDS: hydroCHLOROthiazide 25 MG TAB PO SCH (09:56)
[2025-01-17 11:27] LABS: Glucose,Whole Blood 100 mg/dL (70-110)
[2025-01-17 12:29] VITALS: BP 156/69; PULSE 68
--- NOTE | 2025-01-17 12:39 | P.DS ---
Providers Date of admission: 01/15/25 18:11 Expected date of discharge: 01/17/25 Attending physician: Bib Dunbar Consults: 01/15/25 17:58 Consult Physician Urgent Consulting Provider: Zee Yanes Consult Reason/Comments: Pseudoaneurysm of right wrist Do you want consulting provider notified?: Yes Primary care physician: Dawna Vu Hospital Course: Discharge diagnosis Pseudoaneurysm of the right radial wrist status post cardiac catheterization. Tentative plans for surgical intervention 01/16/2025 History of coronary artery disease History of peripheral arterial disease History of essential hypertension History of hyperlipidemia History of diabetes mellitus type 2 History of paroxysmal atrial fibrillation History of obstructive sleep apnea Hospital course Seferino Perez is a 79-year-old male patient of Dr. Guillen who presented with concerns of pseudoaneurysm of the right wrist. Patient was recently here for same thing and discharged on 01/10/2025. At that time patient was advised to keep pressure dressing over the next 2 to 3 days the patient reports there was minimal improvement presenting back to the ER for further evaluation. Patient recently underwent cardiac catheterization on 12/31/[address] Hardin with right radial approach. Chest x-ray completed showing no acute cardiopulmonary process or disease. Labwork completed showing white blood cell 16.21, potassium 3.3, creatinine 1.28 bun 37 UA negative for infection. Patient has past medical history of diabetes mellitus, GERD, hyperlipidemia, hypertension, osteoarthritis and ex-smoker. At this time patient will be admitted. Vascular surgery has been consulted with tentative plans for repair with of the right upper extremity radial artery. At this time patient denies chest pain or shortness of breath. Patient denies nausea vomiting or diarrhea. Patient denies any urinary burning or frequency On 01/17/2025 patient has been cleared for discharge from vascular surgery patient to continue aspirin and Eliquis starting tomorrow. Patient will be DC'd on Keflex for 1 week. Patient to follow-up with vascular and PCP for further management. Patient denies chest pain or shortness of breath. Patient denies nausea vomiting or diarrhea. Patient denies any urinary burning or frequency Patient Condition at Discharge: Stable Plan - Discharge Summary Discharge Rx Participant: No New Discharge Prescriptions: New Cephalexin [Keflex] 500 mg PO Q8HR 7 Days #21 cap Continue Aspirin [Adult Low Dose Aspirin EC] 81 mg PO HS Celecoxib [CeleBREX] 200 mg PO DAILY Isosorbide Mononitrate ER [Imdur] 90 mg PO DAILY Multivit-Min/FA/Lycopen/Lutein [Centrum Silver Tablet] 1 tab PO HS Simvastatin [Zocor] 40 mg PO HS Omeprazole [PriLOSEC] 20 mg PO HS hydroCHLOROthiazide [Hydrodiuril] 6.25 mg PO DAILY Vit C/E/Zn/Coppr/Lutein/Zeaxan [Preservision Areds 2 Softgel] 1 cap PO BID Fluticasone/Umeclidin/Vilanter [Trelegy Ellipta 200-62.5-25] 1 puff INHALATION RT-DAILY Apixaban [Eliquis] 5 mg PO BID Semaglutide [Ozempic] 1 mg SQ FR Fish Oil/Dha/Epa [Fish Oil 1,200 mg Fish Oil] 1 cap PO HS Magnesium Oxide [Mag-Ox] 400 mg PO Q2D@2100 Cholecalciferol [Vitamin D3 (125 Mcg = 5000 Iu)] 125 mcg PO HS HYDROcodone/APAP 5-325MG [[place] 5-325] 2 tab PO Q6HR Discharge Medication List Aspirin [Adult Low Dose Aspirin EC] 81 mg PO HS 04/08/16 [History] Celecoxib [CeleBREX] 200 mg PO DAILY 04/08/16 [History] Isosorbide Mononitrate ER [Imdur] 90 mg PO DAILY 04/08/16 [History] Multivit-Min/FA/Lycopen/Lutein [Centrum Silver Tablet] 1 tab PO HS 04/08/16 [History] Simvastatin [Zocor] 40 mg PO HS 04/08/16 [History] hydroCHLOROthiazide [Hydrodiuril] 6.25 mg PO DAILY 10/26/21 [History] Vit C/E/Zn/Coppr/Lutein/Zeaxan [Preservision Areds 2 Softgel] 1 cap PO BID 10/07/22 [History] Fluticasone/Umeclidin/Vilanter [Trelegy Ellipta 200-62.5-25] 1 puff INHALATION RT-DAILY 12/26/24 [History] Apixaban [Eliquis] 5 mg PO BID 01/06/25 [History] Fish Oil/Dha/Epa [Fish Oil 1,200 mg Fish Oil] 1 cap PO HS 01/06/25 [History] Magnesium Oxide [Mag-Ox] 400 mg PO Q2D@2100 01/06/25 [History] Omeprazole [PriLOSEC] 20 mg PO HS 01/06/25 [History] Semaglutide [Ozempic] 1 mg SQ FR 01/06/25 [History] Cholecalciferol [Vitamin D3 (125 Mcg = 5000 Iu)] 125 mcg PO HS 01/15/25 [History] HYDROcodone/APAP 5-325MG [[place] 5-325] 2 tab PO Q6HR 01/15/25 [History] Cephalexin [Keflex] 500 mg PO Q8HR 7 Days #21 cap 01/17/25 [Rx] Follow up Appointment(s)/Referral(s): Dawna Vu MD [Primary Care Provider] - 1-2 days Zee Yanes DO [STAFF PHYSICIAN] - 01/22/25 Activity/Diet/Wound Care/Special Instructions: eliquis and asprin to be resumed
--- NOTE | 2025-01-17 13:07 | P.PN ---
Subjective Progress Note Date: 01/17/25 Patient seen and examined. Doing well without any complaints or concerns. Hand feels much better overall. Dressing is removed, drain is removed. Dressing was replaced we will plan to see the patient back in the office next Monday for short-term follow-up. Discussed that he may reinstate his anticoagulation starting tomorrow. Taking it easy with no heavy lifting or soaking of the area. Objective - Vital Signs Vital signs: Vital Signs Temp 97.7 F 01/17/25 07:53 Pulse 68 01/17/25 12:00 Resp 18 01/17/25 12:00 BP 156/69 01/17/25 12:00 Pulse Ox 96 01/17/25 12:00 FiO2 Intake & Output 01/16/25 01/17/25 01/17/25 18:59 06:59 18:59 Intake Total 1592 240 Output Total 40 Balance 1552 240 Weight 127.006 kg 128.1 kg Intake: IV 1052 Oral 540 240 Output: Estimated Blood Loss 40 Other: Voiding Method Toilet Toilet Toilet # Voids 1 - Exam Pleasant male no acute distress. Heart appears regular. Right upper extremity dressings are removed. Incision is clean and dry. No significant hematoma or swelling. Significant ecchymosis mildly more diffuse than previous. Drain removed. Palpable radial pulse. Motor sensor intact. Good buhr dresser strength - Labs CBC & Chem 7: 01/17/25 07:39 01/17/25 07:39 Labs: Abnormal Lab Results - Last 24 Hours (Table) 01/16/25 01/16/25 01/17/25 Range/Units 15:56 20:11 07:39 WBC 16.81 H (4.50-10.00) 10*3/uL Hgb 12.8 L (13.0-17.0) g/dL Hct 38.1 L (39.6-50.0) % Immature Gran # 0.25 H (0.00-0.04) 10*3/uL Neutrophils # 13.35 H (1.80-7.70) 10*3/uL Monocytes # 1.11 H (0.20-1.00) 10*3/uL Sodium (137-145) mmol/L BUN (9-20) mg/dL Glucose (74-99) mg/dL POC Glucose (mg/dL) 111 H 151 H (70-110) mg/dL Total Protein (6.3-8.2) g/dL 01/17/25 Range/Units 07:39 WBC (4.50-10.00) 10*3/uL Hgb (13.0-17.0) g/dL Hct (39.6-50.0) % Immature Gran # (0.00-0.04) 10*3/uL Neutrophils # (1.80-7.70) 10*3/uL Monocytes # (0.20-1.00) 10*3/uL Sodium 136 L (137-145) mmol/L BUN 22 H (9-20) mg/dL Glucose 105 H (74-99) mg/dL POC Glucose (mg/dL) (70-110) mg/dL Total Protein 5.7 L (6.3-8.2) g/dL Assessment and Plan Assessment: Postoperative day #1 from radial artery repair Radial artery pseudoaneurysm after heart catheterization Right upper extremity pain secondary to above Plan: Patient is doing well from my standpoint can be discharged home. He is given instructions for discharge. Will follow-up in 1 week in the office. He is seemingly understand and are willing to proceed.
== END 2025-01-17 13:30 | disposition home or self-care (01) ==
LOC: EC 16:41 → 6NMEDSUR 18:11 → 1SOBS 20:14 → 3SCARD 01-16 14:45
PROVIDERS: ADMIT Internal Medicine; ATTEND Internal Medicine
DX: I72.1 Aneurysm of artery of upper extremity (principal); K21.9 Gastro-esophageal reflux disease without esophagitis; E78.5 Hyperlipidemia, unspecified; I10 Essential (primary) hypertension; I25.10 Atherosclerotic heart disease of native coronary artery without angina pectoris; E11.51 Type 2 diabetes mellitus with diabetic peripheral angiopathy without gangrene; I48.0 Paroxysmal atrial fibrillation; G47.33 Obstructive sleep apnea (adult) (pediatric); Z87.891 Personal history of nicotine dependence; Z79.01 Long term (current) use of anticoagulants; Z79.1 Long term (current) use of non-steroidal anti-inflammatories (NSAID); Z79.51 Long term (current) use of inhaled steroids; Z79.82 Long term (current) use of aspirin; Z79.85 Long-term (current) use of injectable non-insulin antidiabetic drugs; Z79.899 Other long term (current) drug therapy; Z88.1 Allergy status to other antibiotic agents
CPT/HCPCS: 96376 ×3; 96365 ×2; 96366 ×2; 96367; 96375 ×2; 99285; 94640 ×4; 80053 ×2; 80048; 85025 ×2; 85027; 85610; 85730; 81001; 71046; 35206; G0378 ×5; J2250; J0360 ×3; J1644; J1100; J0690; J2405; J2003; J3010; J1171 ×3; J3480; J2704